=== PATIENT | male | born 1965 | race Caucasian/White ===

== ENCOUNTER → 2018-08-15 | Day surgery (SDC) | payer OTHER ==
--- NOTE | 2018-08-14 16:25 | Diagnostic Imaging Report ---
ADDENDUM #1 EXAMINATION: CHEST 2 VIEWS INDICATION: Left fifth Metatarsal fracture. Preop for surgery. COMPARISON: None FINDINGS: TUBES and LINES: None. LUNGS: Lungs are well inflated. Lungs are clear. There is no evidence of pneumonia or pulmonary edema. PLEURA: No pleural effusion or pneumothorax. HEART AND MEDIASTINUM: The cardiomediastinal silhouette is unremarkable. BONES AND SOFT TISSUES: No acute osseous lesion. Soft tissues are unremarkable. UPPER ABDOMEN: No free air under the diaphragm. IMPRESSION: No acute thoracic abnormality. Signed by: Dr. Rene Key M.D. on 08/18/2018 1:11 PM ORIGINAL REPORT EXAMINATION: CHEST 2 VIEWS INDICATION: Preop. COMPARISON: None FINDINGS: TUBES and LINES: None. LUNGS: Lungs are well inflated. Lungs are clear. There is no evidence of pneumonia or pulmonary edema. PLEURA: No pleural effusion or pneumothorax. HEART AND MEDIASTINUM: The cardiomediastinal silhouette is unremarkable. BONES AND SOFT TISSUES: No acute osseous lesion. Soft tissues are unremarkable. UPPER ABDOMEN: No free air under the diaphragm. IMPRESSION: No acute thoracic abnormality. Signed by: Dr. Rene Key M.D. on 08/14/2018 4:21 PM
[~2018-08-15] MED LIST: AMBIEN10 MG PO; BUPIVACAINE HCL 0.5% INJ 30 ML VIAL INJ ONE; CEFAZOLIN SOD 1 GM VIAL ONE; COREG12.5 MG PO; CRESTOR10 MG PO; DEXAMETHASONE SOD PHOS INJ 4 MG/ML VIAL ONE; FENTANYL CITRATE/PF 100MCG/2 ML INJ ONE; HYDROCODONE/APAP 7.5MG-325MG 1 EA TAB ONE; HYDROMORPHONE 1MG/1ML INJ ONE; LIDOCAINE HCL 2% LOCAL INJ 5 ML SDV VIAL INJ ONE; MIDAZOLAM HCL 2 MG/2 ML VIAL ONE; ONDANSETRON HCL INJ 2 MG/ML VIAL ONE; PROPOFOL IV EMULSION 10 MG/ML 20 ML VIAL ONE; SEVOFLURANE INHAL SOLN 250 ML PEN BTL ONE; ULORIC40 MG PO
--- NOTE | 2018-08-15 07:53 | Operative Report ---
DATE OF PROCEDURE: August 15, 2018 PREOPERATIVE DIAGNOSIS: Left 5th metatarsal fracture. POSTOPERATIVE DIAGNOSIS: Left 5th metatarsal fracture. PLANNED PROCEDURE: Left 5th metatarsal open reduction internal fixation. MONITORING ENGINEER: None. ANESTHESIA: General with a postoperative block consisting of 10 mL of 0.5% Marcaine plain. HEMOSTASIS: Pneumatic thigh tourniquet set at 350 mmHg for a total time of approximately 30 minutes. MATERIALS: One [employer] hook plate, four 2.4-mm screws measuring between 12 and 14 mm, combination locking and nonlocking, 3-0 Vicryl, 4-0 Prolene. ESTIMATED BLOOD LOSS: Less than 10 mL. PATHOLOGY: None. DETAILS OF PROCEDURE: Patient was seen in the preoperative waiting room where the correct procedure and site was identified. The patient was brought to the operating room placed on the operating table in the supine position. General anesthesia was initiated at this time. A well-padded pneumatic tourniquet was placed about the patient's left thigh. The left foot, ankle and leg was then scrubbed, prepped and draped in the usual aseptic manner. The left foot, ankle and leg was exsanguinated with an Esmarch bandage and pneumatic thigh tourniquet was inflated to 350 mmHg for a total time approximately 30 minutes. Attention was directed to the lateral aspect of the patient's left 5th metatarsal base where a 6 cm linear incision was made. The incision was carried through the subcutaneous tissues them from deeper underlying structures. All vital neurovascular structures were identified and retracted dorsally and plantarly. All bleeders were cauterized or ligated as deemed necessary. At this point, the fracture of the 5th metatarsal base was easily identified. There was noted to be early hematoma formation. The fracture was reduced and stabilized, and temporarily fixated utilizing the hooks of the [employer] plate per teacher aide protocol. A BV tack was placed to confirm correct anatomic location. Next, per teacher aide protocol the remaining the screws were filled with a combination of locking and nonlocking to allow for the plate to adhere to the bone. Intraoperative fluoroscopy was utilized to ensure that the fracture site is stable. The wound was then flushed with copious amounts of sterile saline. Deep tissue was reapproximated with 3-0 Vicryl, subcutaneous tissue with 3-0 Vicryl and skin was closed using a running interlocking stitch with 4-0 Prolene. The incision site was then dressed with Adaptic, 4 x 4's, Kerlix, posterior splint. The patient is to remain 100% nonweightbearing to the left lower extremity, and to avoid any excessive ambulation until being seen in the office. The patient was given the office number and instructed to contract us if any problems should arise. After the dressing was applied, the patient was then transferred to the postoperative recovery unit with vital signs stable and vascular status intact. The patient was monitored there for a short period of time before being sent home with the following written and oral instructions: 1. Keep the dressing clean, dry and tact. 2. The patient is to remain 100% nonweightbearing to the left lower extremity and to avoid excessive ambulation until being seen in the office. 3. The patient was given the office number and instructed to contact us if any problems should arise. Job#: [id number] INO
[2018-08-15 08:40] VITALS: BP 160/90
== END | disposition home or self-care (01) ==
LOC: OR 05:05
PROVIDERS: ATTEND Podiatrist Foot & Ankle Surgery
DX: S92.352A Displaced fracture of fifth metatarsal bone, left foot, initial encounter for closed fracture (principal); X58.XXXA Exposure to other specified factors, initial encounter; I10 Essential (primary) hypertension; Z01.810 Encounter for preprocedural cardiovascular examination; Z01.818 Encounter for other preprocedural examination
CPT/HCPCS: 28485; 71046; 93005; C1713 ×2; J0690; J1100; J1170; J2001; J2250; J2405

== ENCOUNTER → 2019-02-20 | Day surgery (SDC) | payer OTHER ==
[~2019-02-20] MED LIST changes: +AMBIEN5 MG PO; +BACITRACIN 50,000 UNIT VIAL ONE; -CEFAZOLIN SOD 1 GM VIAL ONE; +CEFAZOLIN SOD 1 GM/NS 50ML 50 ML IV ONE; +HYDROCODONE/APAP 5MG-325MG TAB ONE; -HYDROCODONE/APAP 7.5MG-325MG 1 EA TAB ONE; -HYDROMORPHONE 1MG/1ML INJ ONE; +HYDROMORPHONE 2MG/ML 2 MG/ML ML ONE; +KETOROLAC TROMETHAMINE 30 MG/ML VIAL ONE; -ONDANSETRON HCL INJ 2 MG/ML VIAL ONE; +ONDANSETRON HCL INJ 2MG/ML 2ML 2 MG/ML VIAL ONE
[2019-02-20 08:40] VITALS: BP 138/86
--- NOTE | 2019-02-20 18:37 | Operative Report ---
DATE OF PROCEDURE: 02/20/2019 SURGEON: Jackie Napier DPM ([facility]) SE[employer]ONAL [employer] SURGEON: Emma Candelaria DPM PREOPERATIVE DIAGNOSIS: Painful hardware, left foot. POSTOPERATIVE DIAGNOSIS: Painful hardware, left foot. OPERATIVE PROCEDURE: Removal of painful hardware, left foot. DESCRIPTION OF PROCEDURE: The patient was placed on the OR table in the supine position. The left lower extremity was prepped and draped in the usual manner. A general anesthetic was administered, and hemostasis accomplished using a pneumatic cuff set at 250 mmHg at ankle level. An incision of approximately 5 cm long was made on the dorsolateral aspect of the base of the fifth metatarsal. The incision was deepened, exposing the plate and the screws. The screws were then removed with a screwdriver. The plate was then lifted off the bone. The wound was flushed with sterile saline solution. The periosteum and subcutaneous tissue were closed with 3-0 Vicryl and the skin with 4-0 nylon. Following the procedure, 9 mL of 0.5% Marcaine and 1 mL of Decadron were injected. A sterile compression dressing was then applied. At this time, the pneumatic cuff was released, and a reflex hyperemia was observed to all the digits. The patient tolerated the procedure and the anesthesia well and left the OR to recovery in good condition with vital signs stable. Jackie Napier DPM ([place]) SH/MODL /[id number] MTDD
== END | disposition home or self-care (01) ==
LOC: OR 05:00
PROVIDERS: ATTEND Podiatrist Foot & Ankle Surgery
DX: T84.84XA Pain due to internal orthopedic prosthetic devices, implants and grafts, initial encounter (principal); I10 Essential (primary) hypertension; Y83.8 Other surgical procedures as the cause of abnormal reaction of the patient, or of later complication, without mention of misadventure at the time of the procedure; Z01.810 Encounter for preprocedural cardiovascular examination
CPT/HCPCS: 20680; 93005; J0690; J1100; J1170; J1885; J2001; J2250; J2405; J2704

== ENCOUNTER → 2021-04-27 | Outpatient (CLI) | payer BC ==
[~2021-04-27] MED LIST changes: -BACITRACIN 50,000 UNIT VIAL ONE; -BUPIVACAINE HCL 0.5% INJ 30 ML VIAL INJ ONE; -CEFAZOLIN SOD 1 GM/NS 50ML 50 ML IV ONE; -DEXAMETHASONE SOD PHOS INJ 4 MG/ML VIAL ONE; -FENTANYL CITRATE/PF 100MCG/2 ML INJ ONE; -HYDROCODONE/APAP 5MG-325MG TAB ONE; -HYDROMORPHONE 2MG/ML 2 MG/ML ML ONE; -KETOROLAC TROMETHAMINE 30 MG/ML VIAL ONE; -LIDOCAINE HCL 2% LOCAL INJ 5 ML SDV VIAL INJ ONE; +LORAZEPAM INJ 2 MG/ML VIAL ONE; -MIDAZOLAM HCL 2 MG/2 ML VIAL ONE; -ONDANSETRON HCL INJ 2MG/ML 2ML 2 MG/ML VIAL ONE; -PROPOFOL IV EMULSION 10 MG/ML 20 ML VIAL ONE; -SEVOFLURANE INHAL SOLN 250 ML PEN BTL ONE
== END ==
LOC: MRI 11:54
PROVIDERS: ATTEND Internal Medicine
DX: Z86.73 Personal history of transient ischemic attack (TIA), and cerebral infarction without residual deficits (principal); M47.812 Spondylosis without myelopathy or radiculopathy, cervical region
CPT/HCPCS: 70551; 72050; J2060

== ENCOUNTER → 2021-06-05 | Outpatient (CLI) | payer BC ==
[~2021-06-05] MED LIST changes: -LORAZEPAM INJ 2 MG/ML VIAL ONE
== END ==
LOC: CT 11:04
PROVIDERS: ATTEND Psychiatry & Neurology Neurology
DX: G45.0 Vertebro-basilar artery syndrome (principal)

== ENCOUNTER → 2021-06-14 | Outpatient (CLI) | payer BC | LOC: MRI 12:55 | PROVIDERS: ATTEND Psychiatry & Neurology Neurology | DX: G45.0 Vertebro-basilar artery syndrome (principal) | CPT/HCPCS: 70544; 70547 ==

== ENCOUNTER 2021-12-19 17:17 | Emergency (ER) | payer BC ==
[~2021-12-19] VITALS: Ht 185.4 cm; Wt 86.2 kg
[2021-12-19] MEDS ORDERED: LIDOCAINE HCL 1% LOCAL INJ 20 ML VIAL INJ ONE (17:45)
[2021-12-19] MEDS ORDERED: CEPHALEXIN500 MG PO (17:55)
== END 2021-12-19 18:05 | disposition home or self-care (01) ==
LOC: ER 17:20
DX: S01.81XA Laceration without foreign body of other part of head, initial encounter (principal); W45.8XXA Other foreign body or object entering through skin, initial encounter; W22.09XA Striking against other stationary object, initial encounter; Y92.008 Other place in unspecified non-institutional (private) residence as the place of occurrence of the external cause
CPT/HCPCS: 99283

== ENCOUNTER → 2022-09-25 | Outpatient (CLI) | payer BC ==
[~2022-09-25] MED LIST changes: +CEPHALEXIN500 MG PO
== END ==
LOC: CT 15:30
PROVIDERS: ATTEND Internal Medicine
DX: G45.9 Transient cerebral ischemic attack, unspecified (principal)
CPT/HCPCS: 70450

== ENCOUNTER 2022-10-19 11:14 | Inpatient (IN) | payer BC ==
[2022-10-18 19:46] VITALS: BP 188/107
[~2022-10-19] VITALS: Ht 185.4 cm; Wt 86.2 kg
[2022-10-19] MEDS: METOCLOPRAMIDE HCL 10 MG/2ML VIAL IV SCH
[2022-10-19] MEDS ORDERED: ONDANSETRON HCL INJ 2MG/ML 2ML 2 MG/ML VIAL IV STA (12:14)
[2022-10-19 12:30] LABS: BASOPHILS % 0.4 % (0.0-1.0); HEMATOCRIT 53.4 % (38.2-49.6); HEMOGLOBIN 18.8 g/dL (14.0-18.0); LYMPHOCYTES # (AUTO) 1.2 (1.0-3.2); LYMPHOCYTES % 11.3 % (18.0-39.1); MEAN CORPUSCULAR HEMOGLOBIN 34.5 pg (28-32); MEAN CORPUSCULAR HGB CONC 35.2 g/dL (31-35); MONOCYTES # (AUTO) 0.9 (0.2-0.8); MONOCYTES % 8.6 % (4.4-11.3); NEUTROPHILS # (AUTO) 8.6 (2.1-6.9); NEUTROPHILS % 79.2 % (38.7-80.0); PLATELET COUNT 200 x10e3/uL (140-360); RED BLOOD COUNT 5.45 x10e6/uL (4.3-5.7); RED CELL DISTRIBUTION WIDTH 15.1 % (11.7-14.4)
[2022-10-19] MEDS ORDERED: LACTATED RINGER'S 1,000 ML IV ONE ×3 (12:30→15:00)
[2022-10-19 12:38] LABS: INR 1.05; PARTIAL THROMBOPLASTIN TIME 25.3 seconds (23.8-35.5); PROTHROMBIN TIME 14.7 seconds (11.9-14.5)
[2022-10-19 12:51] LABS: ALBUMIN 4.3 g/dL (3.5-5.0); ALBUMIN/GLOBULIN RATIO 1.1 (0.8-2.0); ANION GAP 27.4 mmol/L (8-16); CALCIUM 9.6 mg/dL (8.4-10.2); CREATININE, SERUM 2.25 mg/dL (0.72-1.25); POTASSIUM 3.4 mmol/L (3.5-5.1)
[2022-10-19 12:57] LABS: CREATINE KINASE MB 2.9 ng/mL (0-5.0)
[2022-10-19] MEDS ORDERED: LORAZEPAM INJ 2 MG/ML VIAL IV ONE (13:45)
[2022-10-19] MEDS ORDERED: IOPAMIDOL 370 MG/ML 100 ML INFUS..BTL INJ ONE (14:56)
[2022-10-19] MEDS ORDERED: DIPHENHYDRAMINE HCL INJ 50 MG/ML VIAL IV ONE (15:00)
[2022-10-19] MEDS ORDERED: PROMETHAZINE 12.5MG/ NACL 0.9% 12.5 MG/50 ML BAG IV ONE (15:00)
[2022-10-19] MEDS ORDERED: ORPHENADRINE CITRATE 30 MG/ML VIAL IV ONE (16:00)
[2022-10-19] MEDS ORDERED: KCL 20MEQ/.9 SOD CHL 1,000 ML IV ONE (16:30)
[2022-10-19 17:22] LABS: AMPHETAMINES SCREEN,URINE NEGATIVE (NEGATIVE); PHENCYCLIDINE SCREEN,URINE NEGATIVE (NEGATIVE)
[2022-10-19 17:23] LABS: BENZODIAZEPINES SCREEN,URINE POSITIVE (NEGATIVE); COLOR,URINE YELLOW (YELLOW)
[2022-10-19 17:24] LABS: CLARITY,URINE CLEAR (CLEAR)
[2022-10-19 17:25] LABS: KETONES,URINE TRACE (NEGATIVE); LEUKOCYTE ESTERASE ,URINE NEGATIVE (NEGATIVE); NITRITE,URINE NEGATIVE (NEGATIVE); PROTEIN,URINE DIPSTICK >=300 (NEGATIVE); URINE UROBILINOGEN 0.2 mg/dL (0.2 - 1)
[2022-10-19 17:33] LABS: BACTERIA,URINE RARE /HPF; EPITHELIAL CELLS,URINE RARE /LPF; RBC,URINE 0-5 /HPF (0-5); WBC,URINE (MAN) 0-5 /HPF (0-5)
[2022-10-19 20:00] VITALS: BP 147/81
[2022-10-19] MEDS ORDERED: CLOPIDOGREL75 MG PO (21:29)
[2022-10-19] MEDS ORDERED: TIZANIDINE HCL2 MG (21:47)
[2022-10-19] MEDS ORDERED: MELATONIN 5 MG TABLET PO PRN (23:00)
[2022-10-19] MEDS ORDERED: LIDOCAINE 4% PATCH TP PRN (23:00)
[2022-10-19] MEDS ORDERED: ONDANSETRON HCL INJ 2MG/ML 2ML 2 MG/ML VIAL IV PRN (23:00)
[2022-10-19] MEDS ORDERED: POTASSIUM CHLORIDE 20 MEQ TAB CR PO PRN (23:00)
[2022-10-19] MEDS ORDERED: HYDRALAZINE HCL 20 MG/ML VIAL IV PRN (23:00)
[2022-10-19] MEDS ORDERED: SIMETHICONE 80 MG CHEW PO PRN (23:00)
[2022-10-19] MEDS ORDERED: BENZONATATE 100 MG CAP PO PRN (23:00)
[2022-10-19] MEDS ORDERED: ACETAMINOPHEN 325 MG TAB PO PRN (23:00)
[2022-10-19] MEDS ORDERED: DOCUSATE SODIUM 100 MG CAP PO PRN (23:00)
[2022-10-19] MEDS ORDERED: DEXTROSE 50% SYRINGE 50 ML IV PRN (23:00)
[2022-10-19] MEDS ORDERED: ALBUTEROL/IPRATROPIUM 3 ML NEB NEB PRN (23:00)
[2022-10-19] MEDS ORDERED: DIPHENHYDRAMINE HCL 25 MG CAP PO PRN (23:00)
[2022-10-19] MEDS: CARVEDILOL 12.5 MG TAB PO SCH (23:15)
[2022-10-19] MEDS ORDERED: HYDROCODONE/APAP 5MG-325MG TAB PO PRN (23:15)
[2022-10-19] MEDS ORDERED: TIZANIDINE HCL 4 MG TAB PO PRN (23:15)
[2022-10-19] MEDS ORDERED: Morphine 4mg INJECTION 4 MG/ML INJ IV PRN (23:15)
[2022-10-19] MEDS: NIFEDIPINE CR 30 MG TAB PO SCH (23:15)
[2022-10-20] VITALS (8 sets, daily range): BP systolic 92–180; BP diastolic 65–108
[2022-10-20] MEDS: SODIUM CHLORIDE 0.9% 1000ML 1,000 ML IV SCH ×3 (01:03→16:27)
[2022-10-20] MEDS: METOCLOPRAMIDE HCL 10 MG/2ML VIAL IV SCH ×3 (06:21→22:26)
[2022-10-20 07:30] LABS: BASOPHILS % 0.6 % (0.0-1.0); EOSINOPHILS # (AUTO) 0.1 (0.0-0.4); EOSINOPHILS % 1.7 % (0.0-6.0); HEMATOCRIT 43.2 % (38.2-49.6); HEMOGLOBIN 14.1 g/dL (14.0-18.0); LYMPHOCYTES # (AUTO) 2.3 (1.0-3.2); LYMPHOCYTES % 34.2 % (18.0-39.1); MEAN CORPUSCULAR HEMOGLOBIN 34.2 pg (28-32); MEAN CORPUSCULAR HGB CONC 32.6 g/dL (31-35); MEAN CORPUSCULAR VOLUME 104.9 fL (81-99); MONOCYTES # (AUTO) 0.7 (0.2-0.8); MONOCYTES % 10.4 % (4.4-11.3); NEUTROPHILS # (AUTO) 3.5 (2.1-6.9); NEUTROPHILS % 52.8 % (38.7-80.0); PLATELET COUNT 137 x10e3/uL (140-360); RED BLOOD COUNT 4.12 x10e6/uL (4.3-5.7); RED CELL DISTRIBUTION WIDTH 16.3 % (11.7-14.4)
[2022-10-20 07:59] LABS: CALCIUM 8.1 mg/dL (8.4-10.2); CREATININE, SERUM 1.74 mg/dL (0.72-1.25); MAGNESIUM 1.6 MG/DL (1.3-2.1)
[2022-10-20] MEDS: CARVEDILOL 12.5 MG TAB PO SCH ×2 (09:51→16:25)
[2022-10-20] MEDS: NIFEDIPINE CR 30 MG TAB PO SCH (09:52)
[2022-10-20] MEDS: PANTOPRAZOLE SOD 40 MG TABEC PO SCH (09:52)
[2022-10-20] MEDS ORDERED: Morphine 2mg Syringe 2 MG/ML SYR ONE (10:12)
[2022-10-20] MEDS: Morphine 2mg Syringe 2 MG/ML SYR IV PRN ×2 (10:12→16:26)
[2022-10-20] MEDS ORDERED: ENOXAPARIN SOD INJ 40 MG/0.4 ML SYR SC SCH (17:00)
[2022-10-21] VITALS: BP 90/57
[2022-10-21] MEDS: SODIUM CHLORIDE 0.9% 1000ML 1,000 ML IV SCH (02:57)
[2022-10-21 04:00] VITALS: BP 116/75
[2022-10-21] MEDS: METOCLOPRAMIDE HCL 10 MG/2ML VIAL IV SCH (06:18)
[2022-10-21 06:32] LABS: BASOPHILS # (AUTO) 0.1 (0.0-0.1); BASOPHILS % 0.6 % (0.0-1.0); EOSINOPHILS # (AUTO) 0.3 (0.0-0.4); EOSINOPHILS % 3.4 % (0.0-6.0); HEMATOCRIT 44.1 % (38.2-49.6); HEMOGLOBIN 14.5 g/dL (14.0-18.0); LYMPHOCYTES # (AUTO) 2.8 (1.0-3.2); LYMPHOCYTES % 35.1 % (18.0-39.1); MEAN CORPUSCULAR HEMOGLOBIN 34.5 pg (28-32); MEAN CORPUSCULAR HGB CONC 32.9 g/dL (31-35); MONOCYTES # (AUTO) 0.8 (0.2-0.8); MONOCYTES % 9.5 % (4.4-11.3); NEUTROPHILS % 51.3 % (38.7-80.0); PLATELET COUNT 133 x10e3/uL (140-360); RED CELL DISTRIBUTION WIDTH 15.7 % (11.7-14.4)
[2022-10-21 06:57] LABS: ANION GAP 16.9 mmol/L (8-16); CALCIUM 8.4 mg/dL (8.4-10.2); CREATININE, SERUM 1.58 mg/dL (0.72-1.25); POTASSIUM 3.9 mmol/L (3.5-5.1)
[2022-10-21 08:00] VITALS: BP 161/97
[2022-10-21 08:29] VITALS: BP 161/97
[2022-10-21] MEDS: CARVEDILOL 12.5 MG TAB PO SCH (09:18)
[2022-10-21] MEDS: PANTOPRAZOLE SOD 40 MG TABEC PO SCH (09:19)
[2022-10-21] MEDS: NIFEDIPINE CR 30 MG TAB PO SCH (09:19)
[2022-10-21 11:14] VITALS: BP 171/101
[2022-10-21] MEDS: Morphine 2mg Syringe 2 MG/ML SYR IV PRN (11:47)
[2022-10-21 15:49] VITALS: BP 150/90
== END 2022-10-21 16:01 | disposition home or self-care (01) | DRG 694 ==
LOC: ER 12:16 → ERHOLD 15:54 → MED/SURG 20:01
PROVIDERS: ADMIT Internal Medicine; ATTEND Internal Medicine
DX: N13.2 Hydronephrosis with renal and ureteral calculous obstruction (principal); E23.0 Hypopituitarism; N17.9 Acute kidney failure, unspecified; K76.0 Fatty (change of) liver, not elsewhere classified; R31.29 Other microscopic hematuria; G89.29 Other chronic pain; E87.6 Hypokalemia; I10 Essential (primary) hypertension; K21.9 Gastro-esophageal reflux disease without esophagitis; G47.00 Insomnia, unspecified; Z79.890 Hormone replacement therapy; D75.1 Secondary polycythemia; Z20.822 Contact with and (suspected) exposure to COVID-19; Z86.73 Personal history of transient ischemic attack (TIA), and cerebral infarction without residual deficits
CPT/HCPCS: 0223U; 36415; 71045; 74018; 74177; 80048; 80053; 80307; 81001; 82550; 82553; 83690; 83735; 84484; 85025; 85610; 85730; 87086; 93005; 99284; J0692; J0696; J1200; J1650; J2060; J2270; J2360; J2405; J2550; J2765; J7030; J7121; Q9967

== ENCOUNTER 2023-04-18 17:30 | Observation (INO) | payer BC ==
[~2023-04-18] VITALS: Ht 368.3 cm; Wt 79.8 kg
[~2023-04-18 17:30] MED LIST changes: +CIPRO500 MG PO; +CLOPIDOGREL75 MG PO; +ELIQUIS5 MG PO; +NIFEDIPINE ER30 M1 PO; +TIZANIDINE HCL2 MG; +ULTRAM 50MG50 MG PO
[2023-04-18] MEDS ORDERED: SODIUM CHLORIDE 0.9% 1000ML 1,000 ML IV STA (17:48)
[2023-04-18] MEDS ORDERED: Morphine 4mg INJECTION 4 MG/ML INJ IV STA (17:48)
[2023-04-18] MEDS ORDERED: ONDANSETRON HCL INJ 2MG/ML 2ML 2 MG/ML VIAL IV STA ×2 (17:48)
[2023-04-18 17:57] LABS: BASOPHILS # (AUTO) 0.1 (0.0-0.1); BASOPHILS % 0.5 % (0.0-1.0); EOSINOPHILS # (AUTO) 0.1 (0.0-0.4); EOSINOPHILS % 0.5 % (0.0-6.0); HEMATOCRIT 45.2 % (38.2-49.6); HEMOGLOBIN 16.4 g/dL (14.0-18.0); LYMPHOCYTES # (AUTO) 1.7 (1.0-3.2); MEAN CORPUSCULAR HEMOGLOBIN 35.7 pg (28-32); MEAN CORPUSCULAR HGB CONC 36.3 g/dL (31-35); MEAN CORPUSCULAR VOLUME 98.3 fL (81-99); MONOCYTES # (AUTO) 0.6 (0.2-0.8); MONOCYTES % 6.6 % (4.4-11.3); NEUTROPHILS # (AUTO) 6.7 (2.1-6.9); NEUTROPHILS % 73.2 % (38.7-80.0); PLATELET COUNT 222 x10e3/uL (140-360); RED CELL DISTRIBUTION WIDTH 13.5 % (11.7-14.4)
[2023-04-18 18:09] LABS: INR 0.93; PARTIAL THROMBOPLASTIN TIME 31.3 seconds (23.8-35.5)
[2023-04-18 18:18] LABS: ALANINE AMINOTRANSFERASE 16 IU/L (0-55); ALBUMIN 4.4 g/dL (3.5-5.0); ALBUMIN/GLOBULIN RATIO 1.1 (0.8-2.0); ALKALINE PHOSPHATASE 79 IU/L (40-150); ANION GAP 23.2 mmol/L (8-16); BLOOD UREA NITROGEN 21 mg/dL (7-26); BUN/CREATININE RATIO 9 (6-25); CALCIUM 9.7 mg/dL (8.4-10.2); CARBON DIOXIDE 17 mmol/L (22-29); CHLORIDE 104 mmol/L (98-107); CREATINE KINASE 111 IU/L (30-200); CREATININE, SERUM 2.35 mg/dL (0.72-1.25); GLUCOSE 123 mg/dL (74-118); POTASSIUM 3.2 mmol/L (3.5-5.1); SODIUM 141 mmol/L (136-145)
[2023-04-18] MEDS ORDERED: IOPAMIDOL 370 MG/ML 100 ML INFUS..BTL INJ ONE (18:24)
[2023-04-18] MEDS ORDERED: PROMETHAZINE 25MG/ NS 50ML (IV) IV ONE ×2 (19:00→19:15)
[2023-04-18] MEDS ORDERED: ONDANSETRON HCL INJ 2MG/ML 2ML 2 MG/ML VIAL IV PRN (22:30)
[2023-04-18] MEDS ORDERED: Morphine 4mg INJECTION 4 MG/ML INJ IV PRN (22:30)
[2023-04-18] MEDS ORDERED: METOPROLOL TARTRATE INJ 1 MG/ML VIAL IV STA (22:31)
[2023-04-18] MEDS ORDERED: HALOPERIDOL LACTATE 5 MG/ML VIAL IV STA (22:35)
[2023-04-18] MEDS ORDERED: PROMETHAZINE 25MG/ NS 50ML (IV) IV STA (22:35)
[2023-04-18] MEDS ORDERED: HALOPERIDOL LACTATE 5 MG/ML VIAL ONE (22:46)
[2023-04-18] MEDS: CLONIDINE HCL 0.2 MG TAB PO STA (23:09)
[2023-04-18 23:15] LABS: CLARITY,URINE CLEAR (CLEAR); COLOR,URINE YELLOW (YELLOW); KETONES,URINE 1+ (NEGATIVE); LEUKOCYTE ESTERASE ,URINE NEGATIVE (NEGATIVE); NITRITE,URINE NEGATIVE (NEGATIVE); PROTEIN,URINE DIPSTICK 2+ (NEGATIVE); URINE UROBILINOGEN 0.2 mg/dL (0.2 - 1)
[2023-04-18 23:23] LABS: BACTERIA,URINE FEW /HPF; EPITHELIAL CELLS,URINE FEW /LPF; RBC,URINE 0-5 /HPF (0-5); WBC,URINE (MAN) 0-5 /HPF (0-5)
[2023-04-18] MEDS ORDERED: NITROGLYCERIN 2% OINT 1 GM PKT TOP STA (23:25)
[2023-04-18 23:35] VITALS: PULSE 79; RESP 18; O2SAT 100
[2023-04-19] MEDS ORDERED: LABETALOL HCL 5 MG/ML 20ML VIAL IV STA (00:07)
[2023-04-19] MEDS: CLONIDINE HCL 0.2 MG TAB PO STA (00:11)
[2023-04-19] MEDS ORDERED: DEXTROSE 50% SYRINGE 50 ML IV PRN (01:00)
[2023-04-19] MEDS ORDERED: ACETAMINOPHEN 325 MG TAB PO PRN (01:00)
[2023-04-19] MEDS ORDERED: ALBUTEROL/IPRATROPIUM 3 ML NEB NEB PRN (01:00)
[2023-04-19] MEDS ORDERED: MELATONIN 5 MG TABLET PO PRN (01:00)
[2023-04-19] MEDS ORDERED: SIMETHICONE 80 MG CHEW PO PRN (01:00)
[2023-04-19] MEDS ORDERED: LIDOCAINE 4% PATCH TP PRN (01:00)
[2023-04-19] MEDS ORDERED: DIPHENHYDRAMINE HCL 25 MG CAP PO PRN (01:00)
[2023-04-19] MEDS ORDERED: BENZONATATE 100 MG CAP PO PRN (01:00)
[2023-04-19] MEDS ORDERED: HYDRALAZINE HCL 20 MG/ML VIAL IV PRN (01:00)
[2023-04-19] MEDS ORDERED: POTASSIUM CHLORIDE 20 MEQ TAB CR PO PRN (01:00)
[2023-04-19] MEDS ORDERED: DOCUSATE SODIUM 100 MG CAP PO PRN (01:00)
[2023-04-19] MEDS ORDERED: IPRATROPIUM BROMIDE 0.02% 2.5 ML NEB NEB PRN (01:30)
[2023-04-19] MEDS ORDERED: ALBUTEROL SULF 0.083% NEB SOLN 3 ML NEB NEB PRN (01:30)
[2023-04-19] MEDS: SUCRALFATE 1 GM/10 ML SUSP NG SCH ×2 (02:39→07:30)
[2023-04-19] MEDS: NIFEDIPINE CR 30 MG TAB PO SCH ×2 (02:39→08:46)
[2023-04-19 02:45] LABS: BASOPHILS % 0.3 % (0.0-1.0); HEMATOCRIT 43.7 % (38.2-49.6); HEMOGLOBIN 15.8 g/dL (14.0-18.0); LYMPHOCYTES % 11.5 % (18.0-39.1); MEAN CORPUSCULAR HEMOGLOBIN 35.8 pg (28-32); MEAN CORPUSCULAR HGB CONC 36.2 g/dL (31-35); MEAN CORPUSCULAR VOLUME 99.1 fL (81-99); MONOCYTES # (AUTO) 0.6 (0.2-0.8); MONOCYTES % 6.2 % (4.4-11.3); NEUTROPHILS # (AUTO) 7.4 (2.1-6.9); NEUTROPHILS % 81.8 % (38.7-80.0); PLATELET COUNT 178 x10e3/uL (140-360); RED BLOOD COUNT 4.41 x10e6/uL (4.3-5.7); RED CELL DISTRIBUTION WIDTH 13.7 % (11.7-14.4)
[2023-04-19 03:28] LABS: ALBUMIN 4.1 g/dL (3.5-5.0); ALBUMIN/GLOBULIN RATIO 1.1 (0.8-2.0); ANION GAP 19.7 mmol/L (8-16); CALCIUM 9.1 mg/dL (8.4-10.2); CREATININE, SERUM 2.05 mg/dL (0.72-1.25); POTASSIUM 3.7 mmol/L (3.5-5.1)
[2023-04-19] MEDS ORDERED: LABETALOL HCL 20 ML ONE (04:40)
[2023-04-19] MEDS ORDERED: PANTOPRAZOLE SOD 40 MG TABEC PO SCH (07:30)
[2023-04-19 08:07] VITALS: BP 118/87; PULSE 67; RESP 18; TEMP 98.2; O2SAT 98
[2023-04-19] MEDS: SODIUM CHLORIDE 0.9% 1000ML 1,000 ML IV SCH (08:42)
[2023-04-19 09:48] VITALS: BP 95/70; PULSE 71; RESP 19; TEMP 97.9; O2SAT 100
[2023-04-19] MEDS ORDERED: ENOXAPARIN SOD INJ 40 MG/0.4 ML SYR SC SCH (17:00)
== END 2023-04-19 12:15 | disposition left against medical advice (07) ==
LOC: ER 17:43 → ERHOLD 22:22 → MED/SURG 04-19 08:00
PROVIDERS: ADMIT Internal Medicine; ATTEND Internal Medicine
DX: R10.9 Unspecified abdominal pain (principal); R11.2 Nausea with vomiting, unspecified; N17.9 Acute kidney failure, unspecified; E86.0 Dehydration; K20.90 Esophagitis, unspecified without bleeding; I16.0 Hypertensive urgency; Z86.711 Personal history of pulmonary embolism; Z88.8 Allergy status to other drugs, medicaments and biological substances; Z53.29 Procedure and treatment not carried out because of patient's decision for other reasons; Z79.02 Long term (current) use of antithrombotics/antiplatelets; Z79.899 Other long term (current) drug therapy; Z20.822 Contact with and (suspected) exposure to COVID-19
CPT/HCPCS: 0223U; 36415 ×2; 71260; 74177; 80053 ×2; 81001; 82550 ×2; 82553 ×2; 83880; 84484 ×2; 85025 ×2; 85610; 85730; 93005 ×2; 94799; 99285; G0378 ×2; J1630; J2405; J2550; J3490; J7030 ×2; Q9967

== ENCOUNTER 2023-04-23 03:02 | Emergency (ER) | payer BC ==
[~2023-04-23] VITALS: Ht 188 cm; Wt 82.6 kg
[2023-04-23 03:06] VITALS: O2SAT 98
[2023-04-23] MEDS ORDERED: ASPIRIN 81 MG CHEW TAB ONE (03:11)
[2023-04-23] MEDS ORDERED: ASPIRIN 81 MG CHEW TAB PO ONE (03:15)
[2023-04-23 03:19] LABS: BASOPHILS % 0.3 % (0.0-1.0); EOSINOPHILS % 0.3 % (0.0-6.0); HEMOGLOBIN 16.6 g/dL (14.0-18.0); LYMPHOCYTES # (AUTO) 1.4 (1.0-3.2); LYMPHOCYTES % 11.5 % (18.0-39.1); MEAN CORPUSCULAR HEMOGLOBIN 35.2 pg (28-32); MEAN CORPUSCULAR HGB CONC 36.1 g/dL (31-35); MEAN CORPUSCULAR VOLUME 97.5 fL (81-99); MONOCYTES # (AUTO) 0.8 (0.2-0.8); MONOCYTES % 6.4 % (4.4-11.3); NEUTROPHILS # (AUTO) 9.6 (2.1-6.9); NEUTROPHILS % 81.2 % (38.7-80.0); PLATELET COUNT 226 x10e3/uL (140-360); RED BLOOD COUNT 4.72 x10e6/uL (4.3-5.7)
[2023-04-23] MEDS ORDERED: ONDANSETRON HCL INJ 2MG/ML 2ML 2 MG/ML VIAL IV STA (03:25)
[2023-04-23 03:28] LABS: INR 0.94; PROTHROMBIN TIME 13.1 seconds (11.9-14.5)
[2023-04-23 03:29] LABS: PARTIAL THROMBOPLASTIN TIME 29.3 seconds (23.8-35.5)
[2023-04-23] MEDS ORDERED: HEPARIN 25,000 UNIT/D5W 250ML 1,000 UNIT in DEXTROSE 5% 250ML 250 ML IV SCH (03:30)
[2023-04-23] MEDS ORDERED: HEPARIN SOD (PORCINE) 5,000 UNIT/ML VIAL IV ONE (03:30)
[2023-04-23] MEDS ORDERED: METOPROLOL TARTRATE INJ 1 MG/ML VIAL IV ONE (03:30)
[2023-04-23] MEDS ORDERED: HEPARIN 25,000 UNIT DRIP IV ONE (03:33)
[2023-04-23 03:39] LABS: ALBUMIN 4.4 g/dL (3.5-5.0); ANION GAP 21.1 mmol/L (8-16); CALCIUM 10.1 mg/dL (8.4-10.2); CREATININE, SERUM 2.25 mg/dL (0.72-1.25); POTASSIUM 3.1 mmol/L (3.5-5.1)
== END 2023-04-23 03:50 | disposition other institution (70) ==
LOC: ER 03:07
DX: R07.89 Other chest pain (principal); I21.19 ST elevation (STEMI) myocardial infarction involving other coronary artery of inferior wall; I16.0 Hypertensive urgency; I10 Essential (primary) hypertension; R94.31 Abnormal electrocardiogram [ECG] [EKG]; Z86.711 Personal history of pulmonary embolism; Z87.442 Personal history of urinary calculi
CPT/HCPCS: 36415; 71045; 80053; 82550; 82553; 84484; 85025; 85610; 85730; 93005; 99284; J1644; J2405

== ENCOUNTER 2024-05-31 19:49 | Emergency (ER) | payer BC ==
[~2024-05-31] VITALS: Ht 188 cm; Wt 86.2 kg
[~2024-05-31 19:49] MED LIST changes: +PANTOPRAZOLE SO40 MG PO; +PEPCID20 MG PO; +PROMETHAZINE HC25 M1 PO
[2024-05-31] MEDS ORDERED: SODIUM CHLORIDE FLUSH 10 ML SYR IV PRN (20:00)
[2024-05-31 20:03] VITALS: TEMP 98.6
[2024-05-31] MEDS: SODIUM CHLORIDE 0.9% 1000ML 1,000 ML IV ONE (20:24)
[2024-05-31 20:39] LABS: BASOPHILS % 0.3 % (0.0-1.0); HEMATOCRIT 37.3 % (38.2-49.6); HEMOGLOBIN 11.9 g/dL (14.0-18.0); LYMPHOCYTES # (AUTO) 1.1 (1.0-3.2); LYMPHOCYTES % 8.2 % (18.0-39.1); MEAN CORPUSCULAR HEMOGLOBIN 31.4 pg (28-32); MEAN CORPUSCULAR HGB CONC 31.9 g/dL (31-35); MEAN CORPUSCULAR VOLUME 98.4 fL (81-99); MONOCYTES # (AUTO) 0.9 (0.2-0.8); MONOCYTES % 6.6 % (4.4-11.3); NEUTROPHILS # (AUTO) 11.2 (2.1-6.9); NEUTROPHILS % 84.4 % (38.7-80.0); PLATELET COUNT 235 x10e3/uL (140-360); RED BLOOD COUNT 3.79 x10e6/uL (4.3-5.7); RED CELL DISTRIBUTION WIDTH 20.1 % (11.7-14.4); WHITE BLOOD COUNT 13.24 x10e3/uL (4.8-10.8)
[2024-05-31 20:48] LABS: INR 1.03; PROTHROMBIN TIME 14.2 seconds (11.9-14.5)
[2024-05-31 20:59] LABS: ALBUMIN 3.8 g/dL (3.5-5.0); ALBUMIN/GLOBULIN RATIO 0.7 (0.8-2.0); ANION GAP 32.5 mmol/L (8-16); BILIRUBIN,TOTAL 0.9 mg/dL (0.2-1.2); CALCIUM 9.5 mg/dL (8.4-10.2); CREATININE, SERUM 3.61 mg/dL (0.72-1.25); POTASSIUM 4.5 mmol/L (3.5-5.1); TOTAL PROTEIN 8.9 g/dL (6.5-8.1)
[2024-05-31] MEDS: METOCLOPRAMIDE HCL 10 MG/2ML VIAL IV ONE (22:01)
[2024-05-31] MEDS ORDERED: METOCLOPRAMIDE HCL 10 MG/2ML VIAL ONE (22:03)
[2024-05-31 22:12] LABS: ETHANOL < 10.0 mg/dL (0.0-10.0); SALICYLATE < 5.0 mg/dL (0-30)
[2024-05-31] MEDS: HUM PROTHROMBIN CPLX(PCC)4FACT 500 UNIT VIAL IV STA (22:40)
[2024-05-31 23:03] VITALS: PULSE 126; RESP 27
[2024-05-31] MEDS: TIZANIDINE HCL 4 MG TAB PO STA (23:38)
[2024-06-01 00:45] VITALS: BP 105/89; PULSE 101; RESP 26; TEMP 98.3; O2SAT 99
== END 2024-06-01 01:09 | disposition other institution (70) ==
LOC: ER 19:56
DX: R06.02 Shortness of breath (principal); R11.2 Nausea with vomiting, unspecified; R00.2 Palpitations; R07.9 Chest pain, unspecified; K92.2 Gastrointestinal hemorrhage, unspecified; N17.9 Acute kidney failure, unspecified; S06.5X0A Traumatic subdural hemorrhage without loss of consciousness, initial encounter; W01.0XXA Fall on same level from slipping, tripping and stumbling without subsequent striking against object, initial encounter; Y93.01 Activity, walking, marching and hiking; Y92.89 Other specified places as the place of occurrence of the external cause; I10 Essential (primary) hypertension; E78.5 Hyperlipidemia, unspecified; I25.2 Old myocardial infarction; Z86.73 Personal history of transient ischemic attack (TIA), and cerebral infarction without residual deficits; Z86.711 Personal history of pulmonary embolism
CPT/HCPCS: 36415; 70450; 80053; 80320; 80329; 83690; 84484; 85025; 85610; 85730; 86850; 86900; 93005; 99285; C9113 ×2; J2765; J7030; J2470

== ENCOUNTER 2024-06-24 11:41 | Emergency (ER) | payer SELFPAY ==
[~2024-06-24] VITALS: Ht 188 cm; Wt 83.9 kg
[2024-06-24 11:50] VITALS: TEMP 98.4
[2024-06-24] MEDS ORDERED: SODIUM CHLORIDE FLUSH 10 ML SYR IV PRN (12:45)
[2024-06-24 12:46] LABS: BASOPHILS % 0.3 % (0.0-1.0); EOSINOPHILS # (AUTO) 0.1 (0.0-0.4); EOSINOPHILS % 0.7 % (0.0-6.0); HEMATOCRIT 26.2 % (38.2-49.6); HEMOGLOBIN 8.4 g/dL (14.0-18.0); LYMPHOCYTES # (AUTO) 0.8 (1.0-3.2); LYMPHOCYTES % 9.5 % (18.0-39.1); MEAN CORPUSCULAR HEMOGLOBIN 30.5 pg (28-32); MEAN CORPUSCULAR HGB CONC 32.1 g/dL (31-35); MEAN CORPUSCULAR VOLUME 95.3 fL (81-99); MONOCYTES # (AUTO) 0.4 (0.2-0.8); MONOCYTES % 4.5 % (4.4-11.3); NEUTROPHILS # (AUTO) 7.4 (2.1-6.9); NEUTROPHILS % 84.2 % (38.7-80.0); PLATELET COUNT 168 x10e3/uL (140-360); RED BLOOD COUNT 2.75 x10e6/uL (4.3-5.7); RED CELL DISTRIBUTION WIDTH 20.1 % (11.7-14.4)
[2024-06-24 13:00] LABS: ALBUMIN 3.3 g/dL (3.5-5.0); ALBUMIN/GLOBULIN RATIO 0.9 (0.8-2.0); ANION GAP 18.2 mmol/L (8-16); CALCIUM 8.6 mg/dL (8.4-10.2); CREATININE, SERUM 1.73 mg/dL (0.72-1.25); MAGNESIUM 2.2 MG/DL (1.3-2.1)
[2024-06-24 13:06] LABS: TROPONIN I 0.038 ng/mL (0-0.300)
[2024-06-24 13:11] LABS: POTASSIUM 3.2 mmol/L (3.5-5.1)
[2024-06-24] MEDS: ONDANSETRON HCL INJ 2MG/ML 2ML 2 MG/ML VIAL IV STA (13:35)
[2024-06-24] MEDS: Morphine 4mg INJECTION 4 MG/ML INJ IV ONE (13:35)
[2024-06-24 13:40] VITALS: PULSE 71; RESP 16
[2024-06-24 14:01] VITALS: PULSE 61; RESP 18; O2SAT 99
[2024-06-24] MEDS: HYDROCODONE/APAP 5MG-325MG TAB PO ONE (15:22)
[2024-06-24] MEDS: FUROSEMIDE INJ 10 MG/ML 4 ML VIAL IV ONE (15:23)
[2024-06-24 16:27] VITALS: BP 128/80; PULSE 67; RESP 16; O2SAT 100
== END 2024-06-24 15:52 | disposition home or self-care (01) ==
LOC: ER 11:47
DX: R06.02 Shortness of breath (principal); M54.50 Low back pain, unspecified; G89.29 Other chronic pain; E87.70 Fluid overload, unspecified; I10 Essential (primary) hypertension; E78.5 Hyperlipidemia, unspecified; I73.9 Peripheral vascular disease, unspecified; R94.31 Abnormal electrocardiogram [ECG] [EKG]; Z86.711 Personal history of pulmonary embolism
CPT/HCPCS: 36415; 71045; 80053; 83735; 83880; 84484; 85025; 93005; 94760; 94799; 99284; J1940; J2270; J2405

== ENCOUNTER 2024-07-11 14:09 | Inpatient (IN) | payer SELFPAY ==
[2024-07-11] VITALS (10 sets, daily range): BP systolic 92–111; BP diastolic 57–72; PULSE 34–51; RESP 12–21; TEMP 97.9–98.5; O2SAT 100
[~2024-07-11] VITALS: Ht 188 cm; Wt 81.6 kg
[~2024-07-11 14:09] MED LIST changes: -TIZANIDINE HCL2 MG; +TIZANIDINE HCL2 MG PO
[2024-07-11] MEDS ORDERED: SODIUM CHLORIDE FLUSH 10 ML SYR IV PRN (14:30)
[2024-07-11 14:51] LABS: BASOPHILS # (AUTO) 0.1 (0.0-0.1); BASOPHILS % 0.9 % (0.0-1.0); EOSINOPHILS # (AUTO) 0.1 (0.0-0.4); EOSINOPHILS % 1.5 % (0.0-6.0); HEMATOCRIT 29.1 % (38.2-49.6); HEMOGLOBIN 8.9 g/dL (14.0-18.0); LYMPHOCYTES % 15.4 % (18.0-39.1); MEAN CORPUSCULAR HEMOGLOBIN 28.5 pg (28-32); MEAN CORPUSCULAR HGB CONC 30.6 g/dL (31-35); MEAN CORPUSCULAR VOLUME 93.3 fL (81-99); MONOCYTES # (AUTO) 0.5 (0.2-0.8); MONOCYTES % 7.6 % (4.4-11.3); NEUTROPHILS % 74.3 % (38.7-80.0); PLATELET COUNT 188 x10e3/uL (140-360); RED BLOOD COUNT 3.12 x10e6/uL (4.3-5.7); RED CELL DISTRIBUTION WIDTH 19.4 % (11.7-14.4); WHITE BLOOD COUNT 6.67 x10e3/uL (4.8-10.8)
[2024-07-11] MEDS: SODIUM CHLORIDE 0.9% 1000ML 1,000 ML IV ONE ×2 (14:52→14:53)
[2024-07-11 14:59] LABS: INR 1.14; PROTHROMBIN TIME 15.2 seconds (11.9-14.5)
[2024-07-11 15:00] LABS: PARTIAL THROMBOPLASTIN TIME 31.5 seconds (23.8-35.5)
[2024-07-11 15:17] LABS: TROPONIN I < 0.05 ng/mL (0.0-0.40)
[2024-07-11 16:31] LABS: ALANINE AMINOTRANSFERASE 6 IU/L (0-55); ALBUMIN 3.1 g/dL (3.5-5.0); ALBUMIN/GLOBULIN RATIO 0.8 (0.8-2.0); ALKALINE PHOSPHATASE 142 IU/L (40-150); ANION GAP 24.9 mmol/L (8-16); BILIRUBIN,TOTAL 0.5 mg/dL (0.2-1.2); BLOOD UREA NITROGEN 11 mg/dL (7-26); BUN/CREATININE RATIO 6 (6-25); CALCIUM 8.5 mg/dL (8.4-10.2); CARBON DIOXIDE 13 mmol/L (22-29); CHLORIDE 104 mmol/L (98-107); CREATININE, SERUM 1.83 mg/dL (0.72-1.25); EST GLOMERULAR FILTRATION RATE 43 ML/MIN (>=60); GLUCOSE 120 mg/dL (74-118); POTASSIUM 3.9 mmol/L (3.5-5.1); SODIUM 138 mmol/L (136-145); TOTAL PROTEIN 6.8 g/dL (6.5-8.1)
[2024-07-11] MEDS: ASPIRIN 81 MG CHEW TAB PO ONE (16:35)
[2024-07-11] MEDS ORDERED: MUPIROCIN 2% OINT 22 GM TUBE TOP SCH (17:45)
[2024-07-11] MEDS: POTASSIUM CHLORIDE 20MEQ/100ML 100 ML IV SCH (17:46)
[2024-07-11] MEDS: SODIUM CHLORIDE 0.9% 1000ML 1,000 ML IV SCH (17:46)
[2024-07-11 18:03] LABS: ETHANOL 122.7 mg/dL (0.0-10.0)
[2024-07-11 18:27] LABS: SALICYLATE < 5.0 mg/dL (0-30)
[2024-07-11] MEDS: LACTATED RINGER'S 1,000 ML IV ONE (18:27)
[2024-07-11] MEDS ORDERED: ALLOPURINOL100 MG PO (19:37)
[2024-07-11] MEDS: MUPIROCIN 2% OINT 22 GM TUBE TOP SCH (21:00)
[2024-07-11] MEDS: ZOLPIDEM TARTRATE 5 MG TAB PO SCH (22:29)
[2024-07-12] VITALS (18 sets, daily range): BP systolic 98–181; BP diastolic 62–117; PULSE 48–136; RESP 12–24; TEMP 97.5–99.5; O2SAT 98–100
[2024-07-12 06:21] LABS: BASOPHILS # (AUTO) 0.1 (0.0-0.1); BASOPHILS % 0.8 % (0.0-1.0); EOSINOPHILS # (AUTO) 0.3 (0.0-0.4); EOSINOPHILS % 3.3 % (0.0-6.0); HEMATOCRIT 30.2 % (38.2-49.6); HEMOGLOBIN 9.2 g/dL (14.0-18.0); LYMPHOCYTES # (AUTO) 1.1 (1.0-3.2); LYMPHOCYTES % 13.6 % (18.0-39.1); MEAN CORPUSCULAR HEMOGLOBIN 28.8 pg (28-32); MEAN CORPUSCULAR HGB CONC 30.5 g/dL (31-35); MEAN CORPUSCULAR VOLUME 94.7 fL (81-99); MONOCYTES # (AUTO) 0.6 (0.2-0.8); MONOCYTES % 7.5 % (4.4-11.3); NEUTROPHILS # (AUTO) 5.8 (2.1-6.9); NEUTROPHILS % 74.5 % (38.7-80.0); PLATELET COUNT 142 x10e3/uL (140-360); RED BLOOD COUNT 3.19 x10e6/uL (4.3-5.7); RED CELL DISTRIBUTION WIDTH 19.4 % (11.7-14.4); WHITE BLOOD COUNT 7.78 x10e3/uL (4.8-10.8)
[2024-07-12 06:45] LABS: ALBUMIN 2.9 g/dL (3.5-5.0); ALBUMIN/GLOBULIN RATIO 0.8 (0.8-2.0); BILIRUBIN,TOTAL 0.7 mg/dL (0.2-1.2); CALCIUM 8.3 mg/dL (8.4-10.2); CREATININE, SERUM 1.39 mg/dL (0.72-1.25); TOTAL PROTEIN 6.4 g/dL (6.5-8.1)
[2024-07-12 08:01] LABS: FREE T4 (FREE THYROXINE) 1.02 ng/dL (0.8-1.8)
[2024-07-12 08:02] LABS: THYROID STIMULATING HORMONE 0.75 uIU/mL (0.350-4.940)
[2024-07-12] MEDS: HYDROCODONE/APAP 5MG-325MG TAB PO PRN (09:11)
[2024-07-12] MEDS ORDERED: ATROPINE SULFATE 1 MG/ML VIAL IV PRN (10:30)
[2024-07-12 11:17] LABS: CREATINE KINASE 55 IU/L (30-200)
[2024-07-12 11:52] LABS: TROPONIN I < 0.05 ng/mL (0.0-0.40)
[2024-07-12] MEDS ORDERED: DOCUSATE SODIUM 100 MG CAP PO PRN (14:00)
[2024-07-12] MEDS ORDERED: SIMETHICONE 80 MG CHEW PO PRN (14:00)
[2024-07-12] MEDS ORDERED: ALBUTEROL/IPRATROPIUM 3 ML NEB NEB PRN (14:00)
[2024-07-12] MEDS ORDERED: ACETAMINOPHEN 325 MG TAB PO PRN (14:00)
[2024-07-12] MEDS ORDERED: MELATONIN 3 MG TAB PO PRN (21:00)
[2024-07-12] MEDS: METOPROLOL TARTRATE 25 MG TAB PO ONE (22:45)
[2024-07-12] MEDS: ONDANSETRON HCL INJ 2MG/ML 2ML 2 MG/ML VIAL IV PRN (23:39)
[2024-07-13] VITALS (26 sets, daily range): BP systolic 110–180; BP diastolic 80–114; PULSE 73–127; RESP 15–26; TEMP 98–98.3; O2SAT 97–100
[2024-07-13] MEDS: NIFEDIPINE CR 30 MG TAB PO ONE (00:02)
[2024-07-13] MEDS: CHLORDIAZEPOXIDE HCL 25 MG CAP PO SCH (05:57)
[2024-07-13] MEDS: METOPROLOL TARTRATE INJ 1 MG/ML VIAL IV PRN (05:57)
[2024-07-13 06:33] LABS: BASOPHILS # (AUTO) 0.1 (0.0-0.1); BASOPHILS % 0.7 % (0.0-1.0); EOSINOPHILS # (AUTO) 0.1 (0.0-0.4); EOSINOPHILS % 1.3 % (0.0-6.0); HEMATOCRIT 30.7 % (38.2-49.6); HEMOGLOBIN 9.5 g/dL (14.0-18.0); LYMPHOCYTES # (AUTO) 1.2 (1.0-3.2); LYMPHOCYTES % 16.3 % (18.0-39.1); MEAN CORPUSCULAR HEMOGLOBIN 28.4 pg (28-32); MEAN CORPUSCULAR HGB CONC 30.9 g/dL (31-35); MEAN CORPUSCULAR VOLUME 91.6 fL (81-99); MONOCYTES # (AUTO) 0.8 (0.2-0.8); MONOCYTES % 10.6 % (4.4-11.3); NEUTROPHILS % 70.8 % (38.7-80.0); PLATELET COUNT 179 x10e3/uL (140-360); RED BLOOD COUNT 3.35 x10e6/uL (4.3-5.7); RED CELL DISTRIBUTION WIDTH 19.8 % (11.7-14.4); WHITE BLOOD COUNT 7.05 x10e3/uL (4.8-10.8)
[2024-07-13 06:53] LABS: ANION GAP 17.1 mmol/L (8-16); CALCIUM 8.8 mg/dL (8.4-10.2); CREATININE, SERUM 1.69 mg/dL (0.72-1.25); MAGNESIUM 1.5 MG/DL (1.3-2.1); PHOSPHORUS 3.2 MG/DL (2.3-4.7); POTASSIUM 4.1 mmol/L (3.5-5.1)
[2024-07-13] MEDS ORDERED: HYDRALAZINE HCL 25 MG TAB PO SCH (07:45)
[2024-07-13] MEDS: METOPROLOL TARTRATE 25 MG TAB PO SCH (08:57)
[2024-07-13] MEDS: FUROSEMIDE INJ 10 MG/ML 2 ML VIAL IV SCH (13:49)
[2024-07-13] MEDS: ISOSORBIDE DINITRATE 20 MG TAB PO SCH (13:50)
[2024-07-14] VITALS (21 sets, daily range): BP systolic 104–152; BP diastolic 75–101; PULSE 85–128; RESP 12–25; TEMP 98.4–98.6; O2SAT 94–100
[2024-07-14 06:27] LABS: BASOPHILS % 0.7 % (0.0-1.0); EOSINOPHILS # (AUTO) 0.4 (0.0-0.4); EOSINOPHILS % 5.8 % (0.0-6.0); HEMATOCRIT 29.9 % (38.2-49.6); HEMOGLOBIN 9.2 g/dL (14.0-18.0); LYMPHOCYTES # (AUTO) 1.5 (1.0-3.2); LYMPHOCYTES % 25.2 % (18.0-39.1); MEAN CORPUSCULAR HEMOGLOBIN 28.1 pg (28-32); MEAN CORPUSCULAR HGB CONC 30.8 g/dL (31-35); MEAN CORPUSCULAR VOLUME 91.4 fL (81-99); MONOCYTES # (AUTO) 0.5 (0.2-0.8); MONOCYTES % 8.8 % (4.4-11.3); NEUTROPHILS # (AUTO) 3.6 (2.1-6.9); NEUTROPHILS % 59.2 % (38.7-80.0); PLATELET COUNT 163 x10e3/uL (140-360); RED BLOOD COUNT 3.27 x10e6/uL (4.3-5.7); RED CELL DISTRIBUTION WIDTH 19.6 % (11.7-14.4); WHITE BLOOD COUNT 6.04 x10e3/uL (4.8-10.8)
[2024-07-14 06:45] LABS: ANION GAP 17.6 mmol/L (8-16); CALCIUM 8.9 mg/dL (8.4-10.2); CREATININE, SERUM 2.03 mg/dL (0.72-1.25); MAGNESIUM 1.4 MG/DL (1.3-2.1); PHOSPHORUS 3.2 MG/DL (2.3-4.7); POTASSIUM 3.6 mmol/L (3.5-5.1)
[2024-07-14] MEDS ORDERED: NIFEDIPINE CR 30 MG TAB PO SCH (09:00)
[2024-07-14] MEDS: POTASSIUM CHLORIDE 20 MEQ TAB CR PO ONE (09:40)
[2024-07-14] MEDS ORDERED: THIAMINE H100 MG/1 M IV (12:07)
[2024-07-14] MEDS ORDERED: FOLIC ACID0.4 MG PO (12:07)
[2024-07-14] MEDS ORDERED: ROSUVASTATIN CA40 MG PO (12:07)
[2024-07-14] MEDS ORDERED: AMBIEN CR12.5 MG PO (12:07)
[2024-07-14] MEDS ORDERED: LEVOTHYROXINE50 MCG PO (12:07)
[2024-07-14] MEDS ORDERED: METOPROLOL SUCC25 MG PO (12:07)
[2024-07-14] MEDS ORDERED: AMLODIPINE BESYL5 MG PO (12:07)
[2024-07-14] MEDS ORDERED: THIORIDAZINE HC50 MG PO (12:07)
[2024-07-14] MEDS ORDERED: CARAFATE1 GM/10 ML PO (12:07)
[2024-07-14] MEDS ORDERED: POTASSIUM CL ER PO (12:07)
[2024-07-14] MEDS ORDERED: CLONIDINE HCL0.1 MG PO (12:07)
[2024-07-14] MEDS ORDERED: FEROSUL325 MG PO (12:07)
[2024-07-14] MEDS ORDERED: NEURONTIN300 MG PO (12:07)
[2024-07-14] MEDS ORDERED: VITAMIN B-121000 MCG PO (12:07)
[2024-07-14] MEDS ORDERED: SENEXON-S 50-81 EACH PO (12:07)
[2024-07-14] MEDS: NIFEDIPINE CR 30 MG TAB PO SCH (20:39)
[2024-07-15] VITALS (12 sets, daily range): BP systolic 95–141; BP diastolic 69–84; PULSE 78–127; RESP 16–30; TEMP 98.3–98.4; O2SAT 97–100
[2024-07-15 06:37] LABS: BASOPHILS % 0.4 % (0.0-1.0); EOSINOPHILS # (AUTO) 0.4 (0.0-0.4); EOSINOPHILS % 3.8 % (0.0-6.0); HEMATOCRIT 28.8 % (38.2-49.6); HEMOGLOBIN 8.8 g/dL (14.0-18.0); LYMPHOCYTES # (AUTO) 1.5 (1.0-3.2); LYMPHOCYTES % 15.8 % (18.0-39.1); MEAN CORPUSCULAR HEMOGLOBIN 28.1 pg (28-32); MEAN CORPUSCULAR HGB CONC 30.6 g/dL (31-35); MONOCYTES # (AUTO) 0.4 (0.2-0.8); MONOCYTES % 3.9 % (4.4-11.3); NEUTROPHILS % 75.8 % (38.7-80.0); PLATELET COUNT 148 x10e3/uL (140-360); RED BLOOD COUNT 3.13 x10e6/uL (4.3-5.7); WHITE BLOOD COUNT 9.28 x10e3/uL (4.8-10.8)
[2024-07-15 06:57] LABS: ANION GAP 16.8 mmol/L (8-16); CALCIUM 8.7 mg/dL (8.4-10.2); CREATININE, SERUM 1.73 mg/dL (0.72-1.25); POTASSIUM 3.8 mmol/L (3.5-5.1)
[2024-07-15] MEDS: FUROSEMIDE INJ 10 MG/ML 2 ML VIAL IV SCH (08:24)
[2024-07-15] MEDS: ISOSORBIDE DINITRATE 20 MG TAB PO SCH (08:26)
[2024-07-15] MEDS: NIFEDIPINE CR 30 MG TAB PO SCH (08:27)
[2024-07-16] VITALS (11 sets, daily range): BP systolic 111–126; BP diastolic 73–90; PULSE 86–129; RESP 11–21; TEMP 97–98.5; O2SAT 95–99
[2024-07-16] MEDS: NIFEDIPINE CR 30 MG TAB PO SCH (08:16)
[2024-07-16 09:00] LABS: ANION GAP 16.7 mmol/L (8-16); CALCIUM 8.5 mg/dL (8.4-10.2); CREATININE, SERUM 1.66 mg/dL (0.72-1.25); POTASSIUM 3.7 mmol/L (3.5-5.1)
[2024-07-17] VITALS (14 sets, daily range): BP systolic 101–128; BP diastolic 72–84; PULSE 86–120; RESP 13–23; TEMP 97.7–98.3; O2SAT 94–99
[2024-07-17 11:52] LABS: BILIRUBIN,URINE NEGATIVE (NEGATIVE); CLARITY,URINE CLEAR (CLEAR); COLOR,URINE YELLOW (YELLOW); GLUCOSE, URINE NEGATIVE (NEGATIVE); KETONES,URINE NEGATIVE (NEGATIVE); LEUKOCYTE ESTERASE ,URINE NEGATIVE (NEGATIVE); NITRITE,URINE NEGATIVE (NEGATIVE); PH,URINE 7 (5 - 7); PROTEIN,URINE DIPSTICK NEGATIVE (NEGATIVE); URINE UROBILINOGEN 0.2 mg/dL (0.2 - 1)
[2024-07-17 11:58] LABS: HEMATOCRIT 31.8 % (38.2-49.6); HEMOGLOBIN 9.9 g/dL (14.0-18.0)
[2024-07-17 11:58] LABS: RBC,URINE 0-5 /HPF (0-5); WBC,URINE (MAN) 0-5 /HPF (0-5)
[2024-07-17 11:59] LABS: BACTERIA,URINE RARE /HPF; EPITHELIAL CELLS,URINE RARE /LPF
[2024-07-17 12:18] LABS: ANION GAP 16.7 mmol/L (8-16); CALCIUM 9.4 mg/dL (8.4-10.2); CREATININE, SERUM 1.6 mg/dL (0.72-1.25); POTASSIUM 3.7 mmol/L (3.5-5.1)
[2024-07-17] MEDS: FUROSEMIDE INJ 10 MG/ML 2 ML VIAL IV SCH (17:27)
[2024-07-17] MEDS: ZOLPIDEM TARTRATE 5 MG TAB PO PRN (23:51)
[2024-07-18] VITALS (12 sets, daily range): BP systolic 116–135; BP diastolic 81–97; PULSE 84–105; RESP 14–38; TEMP 97.7–98.4; O2SAT 93–98
[2024-07-18] MEDS ORDERED: CHLORDIAZEPOXID25 MG PO (05:12)
[2024-07-18] MEDS ORDERED: LASIX20 MG PO (05:12)
[2024-07-18] MEDS ORDERED: NIFEDIPINE ER30 M1 PO (05:12)
== END 2024-07-18 18:00 | disposition home or self-care (01) | DRG 309 ==
LOC: ER 14:14 → ERHOLD 17:27 → ICU 18:30 → OBSVTOIN 07-13 10:00
PROVIDERS: ADMIT Internal Medicine; ATTEND Internal Medicine
PROC: 4A143R3 Monitoring of Venous Saturation, Pulmonary, Percutaneous Approach (ICD-10-PCS; principal; 2024-07-11)
PROC: 4A143R3 Monitoring of Venous Saturation, Pulmonary, Percutaneous Approach (ICD-10-PCS; 2024-07-12)
DX: I49.5 Sick sinus syndrome (principal); E87.20 Acidosis, unspecified; N17.9 Acute kidney failure, unspecified; R00.1 Bradycardia, unspecified; E86.0 Dehydration; R01.1 Cardiac murmur, unspecified; I95.9 Hypotension, unspecified; F10.120 Alcohol abuse with intoxication, uncomplicated; Y90.6 Blood alcohol level of 120-199 mg/100 ml; E87.8 Other disorders of electrolyte and fluid balance, not elsewhere classified; I13.10 Hypertensive heart and chronic kidney disease without heart failure, with stage 1 through stage 4 chronic kidney disease, or unspecified chronic kidney disease; N18.30 Chronic kidney disease, stage 3 unspecified; I25.10 Atherosclerotic heart disease of native coronary artery without angina pectoris; F17.210 Nicotine dependence, cigarettes, uncomplicated; D64.9 Anemia, unspecified; R60.0 Localized edema; R00.0 Tachycardia, unspecified; R41.0 Disorientation, unspecified; E78.00 Pure hypercholesterolemia, unspecified; Z86.711 Personal history of pulmonary embolism; Z86.718 Personal history of other venous thrombosis and embolism; Z79.01 Long term (current) use of anticoagulants; Z95.828 Presence of other vascular implants and grafts; Z11.52 Encounter for screening for COVID-19; Z79.899 Other long term (current) drug therapy; Z88.8 Allergy status to other drugs, medicaments and biological substances
CPT/HCPCS: 36415; 70450; 71045; 76770; 78580; 80048; 80053; 80320; 80329; 81001; 82550; 83605; 83735; 84100; 84439; 84443; 84484; 85014; 85018; 85025; 85379; 85610; 85730; 87040; 87086; 93005; 93306; 93880; 94760; 94799; 99252; 99284; A9540; G0378; J0696; J1940; J2405; J3480; J7030; U0002

== ENCOUNTER 2024-08-09 15:08 | Inpatient (IN) | payer SELFPAY ==
[~2024-08-09] VITALS: Ht 188 cm; Wt 83.9 kg
[2024-08-09] VITALS (7 sets, daily range): BP systolic 162–199; BP diastolic 79–103; PULSE 35–39; RESP 13–20; TEMP 97.9–98.1; O2SAT 99–100
[~2024-08-09 15:08] MED LIST changes: +ALLOPURINOL100 MG PO; +AMBIEN CR12.5 MG PO; +AMLODIPINE BESYL5 MG PO; +CARAFATE1 GM/10 ML PO; +CHLORDIAZEPOXID25 MG PO; +CLONIDINE HCL0.1 MG PO; +FEROSUL325 MG PO; +FOLIC ACID0.4 MG PO; +LASIX20 MG PO; +LEVOTHYROXINE50 MCG PO; +METOPROLOL SUCC25 MG PO; +NEURONTIN300 MG PO; +POTASSIUM CL ER PO; +ROSUVASTATIN CA40 MG PO; +SENEXON-S 50-81 EACH PO; +THIAMINE H100 MG/1 M IV; +THIORIDAZINE HC50 MG PO; +VITAMIN B-121000 MCG PO
[2024-08-09 15:51] LABS: BASOPHILS % 0.6 % (0.0-1.0); EOSINOPHILS % 0.3 % (0.0-6.0); HEMATOCRIT 30.1 % (38.2-49.6); HEMOGLOBIN 8.9 g/dL (14.0-18.0); LYMPHOCYTES # (AUTO) 0.6 (1.0-3.2); LYMPHOCYTES % 7.9 % (18.0-39.1); MEAN CORPUSCULAR HEMOGLOBIN 25.9 pg (28-32); MEAN CORPUSCULAR HGB CONC 29.6 g/dL (31-35); MEAN CORPUSCULAR VOLUME 87.8 fL (81-99); MONOCYTES # (AUTO) 0.5 (0.2-0.8); MONOCYTES % 6.5 % (4.4-11.3); NEUTROPHILS # (AUTO) 6.1 (2.1-6.9); NEUTROPHILS % 84.4 % (38.7-80.0); PLATELET COUNT 246 x10e3/uL (140-360); RED BLOOD COUNT 3.43 x10e6/uL (4.3-5.7); RED CELL DISTRIBUTION WIDTH 19.1 % (11.7-14.4); WHITE BLOOD COUNT 7.24 x10e3/uL (4.8-10.8)
[2024-08-09 15:55] LABS: INR 1.07; PROTHROMBIN TIME 14.4 seconds (11.9-14.5)
[2024-08-09 16:02] LABS: ALBUMIN/GLOBULIN RATIO 1.1 (0.8-2.0); ALKALINE PHOSPHATASE 86 IU/L (40-150); ANION GAP 25.3 mmol/L (8-16); BILIRUBIN,TOTAL 0.5 mg/dL (0.2-1.2); BLOOD UREA NITROGEN 18 mg/dL (7-26); BUN/CREATININE RATIO 7 (6-25); CALCIUM 9.6 mg/dL (8.4-10.2); CARBON DIOXIDE 14 mmol/L (22-29); CHLORIDE 104 mmol/L (98-107); CREATININE, SERUM 2.57 mg/dL (0.72-1.25); EST GLOMERULAR FILTRATION RATE 28 ML/MIN (>=60); GLUCOSE 118 mg/dL (74-118); POTASSIUM 4.3 mmol/L (3.5-5.1); SODIUM 139 mmol/L (136-145); TOTAL PROTEIN 7.8 g/dL (6.5-8.1)
[2024-08-09 16:03] LABS: ALANINE AMINOTRANSFERASE < 6 IU/L (0-55)
[2024-08-09] MEDS ORDERED: DOCUSATE SODIUM 100 MG CAP PO PRN (17:00)
[2024-08-09] MEDS ORDERED: SIMETHICONE 80 MG CHEW PO PRN (17:00)
[2024-08-09] MEDS ORDERED: LIDOCAINE 4% PATCH TP PRN (17:00)
[2024-08-09] MEDS ORDERED: ALBUTEROL/IPRATROPIUM 3 ML NEB NEB PRN (17:00)
[2024-08-09] MEDS ORDERED: DEXTROSE 50% SYRINGE 50 ML IV PRN (17:00)
[2024-08-09] MEDS ORDERED: BENZONATATE 100 MG CAP PO PRN (17:00)
[2024-08-09] MEDS ORDERED: DIPHENHYDRAMINE HCL 25 MG CAP PO PRN (17:00)
[2024-08-09] MEDS ORDERED: HYDRALAZINE HCL 20 MG/ML VIAL IV PRN (17:00)
[2024-08-09] MEDS: SODIUM BICARBONATE 8.4% INJ 50 ML SYR IV ONE (17:14)
[2024-08-09] MEDS: LACTATED RINGER'S 1,000 ML INJ SCH (17:14)
[2024-08-09] MEDS: LOSARTAN POTASSIUM 100 MG TAB PO SCH (18:27)
[2024-08-09] MEDS ORDERED: TIZANIDINE HCL4 M1 PO (18:46)
[2024-08-09] MEDS ORDERED: AMLODIPINE BESY10 MG PO (18:46)
[2024-08-09] MEDS ORDERED: MELATONIN 5 MG TABLET PO PRN (21:00)
[2024-08-09 21:32] LABS: ANION GAP 19.3 mmol/L (8-16); CREATININE, SERUM 2.15 mg/dL (0.72-1.25); POTASSIUM 4.3 mmol/L (3.5-5.1)
[2024-08-09] MEDS ORDERED: ATROPINE SULFATE 1 MG/ML VIAL IV PRN (22:00)
[2024-08-09 22:44] LABS: AMPHETAMINES SCREEN,URINE NEGATIVE (NEGATIVE); BENZODIAZEPINES SCREEN,URINE POSITIVE (NEGATIVE); CANNABINOIDS SCREEN,URINE NEGATIVE (NEGATIVE); METHADONE SCREEN, URINE NEGATIVE (NEGATIVE); OPIATES SCREEN,URINE NEGATIVE (NEGATIVE); PHENCYCLIDINE SCREEN,URINE NEGATIVE (NEGATIVE)
[2024-08-10] VITALS (27 sets, daily range): BP systolic 142–196; BP diastolic 81–115; PULSE 35–142; RESP 12–22; TEMP 96.9–100.3; O2SAT 96–100
[2024-08-10 00:28] LABS: CHOL/HDL RATIO 3.4 (3.9-4.7); MAGNESIUM 1.9 MG/DL (1.3-2.1)
[2024-08-10 00:51] LABS: THYROID STIMULATING HORMONE 0.511 uIU/mL (0.350-4.940)
[2024-08-10 06:29] LABS: BASOPHILS % 0.9 % (0.0-1.0); EOSINOPHILS # (AUTO) 0.2 (0.0-0.4); EOSINOPHILS % 3.3 % (0.0-6.0); HEMATOCRIT 29.5 % (38.2-49.6); HEMOGLOBIN 8.8 g/dL (14.0-18.0); LYMPHOCYTES # (AUTO) 1.5 (1.0-3.2); LYMPHOCYTES % 34.1 % (18.0-39.1); MEAN CORPUSCULAR HGB CONC 29.8 g/dL (31-35); MEAN CORPUSCULAR VOLUME 87.3 fL (81-99); MONOCYTES # (AUTO) 0.5 (0.2-0.8); MONOCYTES % 10.7 % (4.4-11.3); NEUTROPHILS # (AUTO) 2.3 (2.1-6.9); NEUTROPHILS % 50.8 % (38.7-80.0); PLATELET COUNT 179 x10e3/uL (140-360); RED BLOOD COUNT 3.38 x10e6/uL (4.3-5.7); RED CELL DISTRIBUTION WIDTH 18.8 % (11.7-14.4); WHITE BLOOD COUNT 4.49 x10e3/uL (4.8-10.8)
[2024-08-10 06:58] LABS: ANION GAP 18.9 mmol/L (8-16); CREATININE, SERUM 1.83 mg/dL (0.72-1.25); POTASSIUM 3.9 mmol/L (3.5-5.1)
[2024-08-10] MEDS: PANTOPRAZOLE SOD 40 MG TABEC PO SCH (07:30)
[2024-08-10] MEDS: SODIUM BICARBONATE 650 MG TAB PO SCH (09:00)
[2024-08-10] MEDS: ONDANSETRON HCL INJ 2MG/ML 2ML 2 MG/ML VIAL IV PRN (15:03)
[2024-08-10] MEDS: PROMETHAZINE 25MG/ NS 50ML (IV) IV ONE (16:00)
[2024-08-10] MEDS: DOXYCYCLINE HYCLATE TABLET 100 MG TAB PO SCH (17:00)
[2024-08-10] MEDS: LORAZEPAM INJ 2 MG/ML VIAL IV ONE (18:01)
[2024-08-10] MEDS: METOCLOPRAMIDE HCL 10 MG/2ML VIAL IV SCH (18:34)
[2024-08-10] MEDS: LABETALOL HCL 5 MG/ML 20ML VIAL IV PRN (19:03)
[2024-08-10] MEDS: ATORVASTATIN 40 MG TAB PO SCH (21:00)
[2024-08-10] MEDS: PROMETHAZINE 25MG/ NS 50ML (IV) IV PRN (21:56)
[2024-08-11] VITALS (31 sets, daily range): BP systolic 158–210; BP diastolic 99–130; PULSE 78–140; RESP 15–40; TEMP 98.6–100.6; O2SAT 93–100
[2024-08-11 05:31] LABS: BASOPHILS % 0.2 % (0.0-1.0); HEMATOCRIT 35.7 % (38.2-49.6); HEMOGLOBIN 10.8 g/dL (14.0-18.0); LYMPHOCYTES # (AUTO) 0.4 (1.0-3.2); LYMPHOCYTES % 4.4 % (18.0-39.1); MEAN CORPUSCULAR HEMOGLOBIN 25.9 pg (28-32); MEAN CORPUSCULAR HGB CONC 30.3 g/dL (31-35); MEAN CORPUSCULAR VOLUME 85.6 fL (81-99); MONOCYTES # (AUTO) 0.5 (0.2-0.8); MONOCYTES % 5.1 % (4.4-11.3); NEUTROPHILS # (AUTO) 8.7 (2.1-6.9); NEUTROPHILS % 89.9 % (38.7-80.0); PLATELET COUNT 253 x10e3/uL (140-360); RED BLOOD COUNT 4.17 x10e6/uL (4.3-5.7); RED CELL DISTRIBUTION WIDTH 19.4 % (11.7-14.4); WHITE BLOOD COUNT 9.68 x10e3/uL (4.8-10.8)
[2024-08-11 05:57] LABS: ANION GAP 28.9 mmol/L (8-16); CALCIUM 9.7 mg/dL (8.4-10.2); CREATININE, SERUM 2.22 mg/dL (0.72-1.25); POTASSIUM 3.9 mmol/L (3.5-5.1)
[2024-08-11] MEDS: CLONIDINE HCL 0.1 MG/24 HR 1 EA PATCH TOP ONE (07:46)
[2024-08-11 14:15] LABS: BILIRUBIN,URINE SMALL (NEGATIVE); CLARITY,URINE CLEAR (CLEAR); COLOR,URINE YELLOW (YELLOW); GLUCOSE, URINE NEGATIVE (NEGATIVE); KETONES,URINE 2+ (NEGATIVE); LEUKOCYTE ESTERASE ,URINE NEGATIVE (NEGATIVE); NITRITE,URINE NEGATIVE (NEGATIVE); PH,URINE 6.5 (5 - 7); PROTEIN,URINE DIPSTICK 2+ (NEGATIVE); URINE UROBILINOGEN 0.2 mg/dL (0.2 - 1)
[2024-08-11 14:16] LABS: BACTERIA,URINE RARE /HPF; EPITHELIAL CELLS,URINE RARE /LPF; RBC,URINE 0-5 /HPF (0-5); WBC,URINE (MAN) 0-5 /HPF (0-5)
[2024-08-11 14:17] LABS: MUCUS,URINE FEW (RARE)
[2024-08-11] MEDS: LORAZEPAM 0.5 MG TAB PO PRN (16:28)
[2024-08-11] MEDS: MAGNESIUM SULFATE 2GM/50ML 50 ML IV ONE (16:59)
[2024-08-11] MEDS: NIFEDIPINE CR 30 MG TAB PO SCH (17:00)
[2024-08-11] MEDS: SODIUM BICARBONATE 8.4% INJ 50 ML SYR IV ONE (17:21)
[2024-08-11] MEDS: DEXAMETHASONE SOD PHOS INJ 4 MG/ML SDV IV ONE (17:21)
[2024-08-11] MEDS: SODIUM CHLORIDE 0.9% 1000ML 1,000 ML IV ONE (17:22)
[2024-08-11] MEDS: METOCLOPRAMIDE HCL 10 MG/2ML VIAL IV SCH (18:04)
[2024-08-11 19:37] LABS: ACETAMINOPHEN < 3.0 ug/mL (10-30); SALICYLATE < 5.0 mg/dL (0-30)
[2024-08-11] MEDS: SODIUM BICARBONATE 8.4% VIAL 150 ML in DEXTROSE 5% 1,000 ML IV SCH (19:51)
[2024-08-11 22:18] LABS: ANION GAP 23.9 mmol/L (8-16); CALCIUM 8.7 mg/dL (8.4-10.2); CREATININE, SERUM 1.88 mg/dL (0.72-1.25); POTASSIUM 3.9 mmol/L (3.5-5.1)
[2024-08-12] VITALS (31 sets, daily range): BP systolic 120–195; BP diastolic 84–164; PULSE 85–139; RESP 15–39; TEMP 97.4–100.1; O2SAT 86–99
[2024-08-12] MEDS: ACETAMINOPHEN 325 MG TAB PO PRN (01:34)
[2024-08-12 04:38] LABS: % IRON SATURATION 9 % (15-50); IRON 38 ug/dL (65-175); TOTAL IRON BINDING CAPACITY 416 ug/dL (261-478); TRANSFERRIN 297 mg/dL (174-364)
[2024-08-12 05:12] LABS: FOLATE 6.3 ng/mL (7.0-15.4)
[2024-08-12 14:24] LABS: ABG HCO3 31 mmol/L (22-26); ABG PCO2 37 mmHg (35-45); ABG PH 7.54 (7.35-7.45); ABG PO2 68 mmHg (80-105); ABG TCO2 33
[2024-08-12 15:39] LABS: BASOPHILS % 0.2 % (0.0-1.0); EOSINOPHILS % 0.1 % (0.0-6.0); HEMATOCRIT 34.8 % (38.2-49.6); HEMOGLOBIN 10.5 g/dL (14.0-18.0); LYMPHOCYTES # (AUTO) 1.1 (1.0-3.2); LYMPHOCYTES % 10.6 % (18.0-39.1); MEAN CORPUSCULAR HEMOGLOBIN 26.2 pg (28-32); MEAN CORPUSCULAR HGB CONC 30.2 g/dL (31-35); MEAN CORPUSCULAR VOLUME 86.8 fL (81-99); MONOCYTES % 9.8 % (4.4-11.3); NEUTROPHILS # (AUTO) 8.4 (2.1-6.9); NEUTROPHILS % 79.1 % (38.7-80.0); PLATELET COUNT 202 x10e3/uL (140-360); RED BLOOD COUNT 4.01 x10e6/uL (4.3-5.7); RED CELL DISTRIBUTION WIDTH 19.9 % (11.7-14.4); WHITE BLOOD COUNT 10.62 x10e3/uL (4.8-10.8)
[2024-08-12 15:56] LABS: ANION GAP 18.3 mmol/L (8-16); CALCIUM 9.1 mg/dL (8.4-10.2); CREATININE, SERUM 1.6 mg/dL (0.72-1.25)
[2024-08-12 16:08] LABS: POTASSIUM 3.3 mmol/L (3.5-5.1)
[2024-08-12] MEDS: POTASSIUM CHLORIDE 20 MEQ TAB CR PO PRN (16:51)
[2024-08-12] MEDS: DOXYCYCLINE HYCLATE TABLET 100 MG TAB PO SCH (16:51)
[2024-08-12] MEDS: POTASSIUM CHLORIDE 20 MEQ TAB CR PO ONE (17:51)
[2024-08-12] MEDS: LACTATED RINGER'S 1,000 ML INJ SCH (18:16)
[2024-08-13] VITALS (24 sets, daily range): BP systolic 114–169; BP diastolic 71–107; PULSE 85–112; RESP 18–25; TEMP 97.9–100.4; O2SAT 91–97
[2024-08-13] MEDS: TRAMADOL HCL 50 MG TAB PO PRN (00:09)
[2024-08-13 06:54] LABS: BASOPHILS % 0.5 % (0.0-1.0); EOSINOPHILS % 0.1 % (0.0-6.0); HEMATOCRIT 26.9 % (38.2-49.6); LYMPHOCYTES # (AUTO) 0.9 (1.0-3.2); LYMPHOCYTES % 10.6 % (18.0-39.1); MEAN CORPUSCULAR HEMOGLOBIN 26.1 pg (28-32); MEAN CORPUSCULAR HGB CONC 29.7 g/dL (31-35); MEAN CORPUSCULAR VOLUME 87.9 fL (81-99); MONOCYTES # (AUTO) 0.8 (0.2-0.8); MONOCYTES % 9.6 % (4.4-11.3); NEUTROPHILS # (AUTO) 6.8 (2.1-6.9); NEUTROPHILS % 78.7 % (38.7-80.0); PLATELET COUNT 156 x10e3/uL (140-360); RED BLOOD COUNT 3.06 x10e6/uL (4.3-5.7); WHITE BLOOD COUNT 8.64 x10e3/uL (4.8-10.8)
[2024-08-13 07:24] LABS: ANION GAP 15.6 mmol/L (8-16); CALCIUM 8.4 mg/dL (8.4-10.2); CREATININE, SERUM 1.29 mg/dL (0.72-1.25); POTASSIUM 3.6 mmol/L (3.5-5.1)
[2024-08-13 09:52] LABS: ANISOCYTOSIS MODERATE; HYPOCHROMASIA SLIGHT; OVALOCYTES FEW; PLATELET ESTIMATE ADEQUATE; PLATELET MORPHOLOGY COMMENT NORMAL; RBC MORPHOLOGY COMMENT ABNORMAL
[2024-08-13] MEDS: SODIUM CHLORIDE 0.9% 250ML 0 ML ONE (10:32)
[2024-08-13] MEDS: IOPAMIDOL 610MG/1ML 300 MG/ML VIAL IV ONE ×2 (10:32→10:33)
[2024-08-13] MEDS: GENTAMICIN SULFATE 40 MG/ML 2 ML VIAL ONE ×2 (10:33→10:42)
[2024-08-13] MEDS: Vancomycin IV 1 GM VIAL ONE ×2 (10:33→10:42)
[2024-08-13] MEDS: SODIUM CHLORIDE 0.9% 1000ML 2,000 ML ONE (10:33)
[2024-08-13] MEDS: LIDOCAINE HCL 2% LOCAL 20 ML VIAL ONE ×2 (10:33→10:42)
[2024-08-13] MEDS: SODIUM CHLORIDE 0.9% 500ML 500 ML ONE (10:33)
[2024-08-13] MEDS: SODIUM CHLORIDE 0.9% 250ML 250 ML ONE (10:34)
[2024-08-13] MEDS: MIDAZOLAM HCL 2 MG/2 ML VIAL ONE (10:34)
[2024-08-13] MEDS: FENTANYL CITRATE/PF 100MCG/2 ML INJ ONE (10:34)
[2024-08-13 10:36] LABS: CREATININE,URINE RANDOM 199.47 mg/dL (63-166); TOTAL PROTEIN, URINE 183.7 mg/dL (1-14)
[2024-08-13] MEDS: DIPHENHYDRAMINE HCL INJ 50 MG/ML VIAL ONE (10:40)
[2024-08-13] MEDS: DIPHENHYDRAMINE HCL 25 MG CAP ONE (10:40)
[2024-08-13] MEDS: SODIUM BICARBONATE 8.4% SYRING 50 ML ONE (10:40)
[2024-08-13] MEDS: SODIUM CHLORIDE 0.9% 1000ML 0 ML ONE (10:41)
[2024-08-13] MEDS: SODIUM CHLORIDE 0.9% 500ML 0 ML ONE (10:42)
[2024-08-13 20:46] LABS: OSMOLALITY,SERUM OSMOMETER 309 mOsmol/kg (275-295)
[2024-08-14] VITALS (22 sets, daily range): BP systolic 112–139; BP diastolic 73–87; PULSE 78–120; RESP 16–26; TEMP 97.8–98.2; O2SAT 89–96
[2024-08-14 06:48] LABS: ANION GAP 17.5 mmol/L (8-16); CALCIUM 8.7 mg/dL (8.4-10.2); CREATININE, SERUM 1.31 mg/dL (0.72-1.25); POTASSIUM 3.5 mmol/L (3.5-5.1)
[2024-08-14] MEDS ORDERED: TIZANIDINE HCL4 M1 PO ×2 (15:48→15:50)
[2024-08-14] MEDS ORDERED: METOPROLOL TART50 MG PO (15:59)
[2024-08-14] MEDS ORDERED: NIFEDIPINE ER30 M1 PO (15:59)
[2024-08-14] MEDS: METOPROLOL TARTRATE 25 MG TAB PO ONE (16:48)
== END 2024-08-14 16:54 | disposition home or self-care (01) | DRG 243 ==
LOC: ER 15:14 → ERHOLD 16:46 → ICU 17:51
PROVIDERS: ADMIT Internal Medicine; ATTEND Internal Medicine
PROC: 0JH606Z Insertion of Pacemaker, Dual Chamber into Chest Subcutaneous Tissue and Fascia, Open Approach (ICD-10-PCS; principal; 2024-08-12)
PROC: 02H63JZ Insertion of Pacemaker Lead into Right Atrium, Percutaneous Approach (ICD-10-PCS; 2024-08-12)
PROC: 02HK3JZ Insertion of Pacemaker Lead into Right Ventricle, Percutaneous Approach (ICD-10-PCS; 2024-08-12)
DX: I49.5 Sick sinus syndrome (principal); E87.20 Acidosis, unspecified; N17.9 Acute kidney failure, unspecified; I47.10 Supraventricular tachycardia, unspecified; F13.139 Sedative, hypnotic or anxiolytic abuse with withdrawal, unspecified; F10.139 Alcohol abuse with withdrawal, unspecified; E87.3 Alkalosis; R00.1 Bradycardia, unspecified; I10 Essential (primary) hypertension; E86.0 Dehydration; I25.10 Atherosclerotic heart disease of native coronary artery without angina pectoris; E78.5 Hyperlipidemia, unspecified; R11.2 Nausea with vomiting, unspecified; Z66 Do not resuscitate; M54.9 Dorsalgia, unspecified; Z79.890 Hormone replacement therapy; Z56.0 Unemployment, unspecified; Z86.711 Personal history of pulmonary embolism; Z86.718 Personal history of other venous thrombosis and embolism; Z95.828 Presence of other vascular implants and grafts; I25.2 Old myocardial infarction; Z86.73 Personal history of transient ischemic attack (TIA), and cerebral infarction without residual deficits; Z88.8 Allergy status to other drugs, medicaments and biological substances
CPT/HCPCS: 33208; 36415; 36600; 70450; 71045; 74176; 75820; 80048; 80053; 80061; 80307; 80320; 80329; 81001; 82570; 82607; 82693; 82746; 82805; 82948; 83036; 83540; 83605; 83690; 83735; 83930; 84100; 84156; 84443; 84466; 84484; 85025; 85045; 85610; 87040; 87086; 93005; 94799; 99152; 99153; 99252; 99284; C1769; C1785; C1898; J0461; J0692; J1100; J1200; J1580; J2001; J2060; J2250; J2405; J2470; J2550; J2765; J3475; J7030; J7040; J7050; J7070

== ENCOUNTER 2025-03-08 17:50 | Inpatient (IN) | payer BC, OTHER ==
[~2025-03-08] VITALS: Ht 188 cm; Wt 83.9 kg
[~2025-03-08 17:50] MED LIST changes: +AMLODIPINE BESY10 MG PO; +METOPROLOL TART50 MG PO; +TIZANIDINE HCL4 M1 PO
[2025-03-08 17:55] VITALS: PULSE 87; RESP 20; TEMP 99.1
[2025-03-08] MEDS: SODIUM CHLORIDE 0.9% 1000ML 1,000 ML IV STA (18:08)
[2025-03-08] MEDS: ONDANSETRON HCL INJ 2MG/ML 2ML 2 MG/ML VIAL IV STA (18:09)
[2025-03-08] MEDS: FAMOTIDINE 20 MG/2 ML VIAL IV STA (18:12)
[2025-03-08 18:22] LABS: BASOPHILS % 0.2 % (0.0-1.0); EOSINOPHILS % 0.1 % (0.0-6.0); HEMATOCRIT 35.1 % (38.2-49.6); HEMOGLOBIN 11.8 g/dL (14.0-18.0); LYMPHOCYTES # (AUTO) 1.3 (1.0-3.2); LYMPHOCYTES % 10.9 % (18.0-39.1); MEAN CORPUSCULAR HEMOGLOBIN 27.5 pg (28-32); MEAN CORPUSCULAR HGB CONC 33.6 g/dL (31-35); MEAN CORPUSCULAR VOLUME 81.8 fL (81-99); MONOCYTES # (AUTO) 0.9 (0.2-0.8); MONOCYTES % 7.3 % (4.4-11.3); NEUTROPHILS # (AUTO) 9.9 (2.1-6.9); NEUTROPHILS % 81.2 % (38.7-80.0); PLATELET COUNT 223 x10e3/uL (140-360); RED BLOOD COUNT 4.29 x10e6/uL (4.3-5.7); WHITE BLOOD COUNT 12.26 x10e3/uL (4.8-10.8)
[2025-03-08 18:36] LABS: ALBUMIN 3.8 g/dL (3.5-5.0); ALBUMIN/GLOBULIN RATIO 0.9 (0.8-2.0); ANION GAP 23.1 mmol/L (8-16); BILIRUBIN,TOTAL 1.2 mg/dL (0.2-1.2); CALCIUM 8.9 mg/dL (8.4-10.2); CREATININE, SERUM 2.96 mg/dL (0.72-1.25); TOTAL PROTEIN 7.9 g/dL (6.5-8.1)
[2025-03-08 18:37] LABS: POTASSIUM 3.1 mmol/L (3.5-5.1)
[2025-03-08 18:42] LABS: TROPONIN I 0.025 ng/mL (0-0.300)
[2025-03-08] MEDS: LIDOCAINE VISC 2% SOLN 15 ML UDC PO STA (18:46)
[2025-03-08] MEDS: MAGNESIUM/ALUMINUM/SIMETHICONE 30 ML UDC PO STA (18:46)
[2025-03-08] MEDS: BELLADONNA ALK/PHENOBARBITAL 5 ML UDC PO ONE (18:46)
[2025-03-08] MEDS: Morphine 2mg Syringe 2 MG/ML SYR IV PRN (19:10)
[2025-03-08] MEDS ORDERED: NORVASC5 MG PO (20:39)
[2025-03-08 20:56] VITALS: BP 123/94; PULSE 59; RESP 18; TEMP 98.1; O2SAT 100
[2025-03-08] MEDS: SODIUM CHLORIDE 0.9% 1000ML 1,000 ML IV SCH (21:05)
[2025-03-08] MEDS ORDERED: ZOLPIDEM TARTRATE 5 MG TAB PO PRN (21:30)
[2025-03-08 22:00] VITALS: BP 123/94; PULSE 59; RESP 18; TEMP 98.1; O2SAT 100
[2025-03-08] MEDS: TIZANIDINE HCL 4 MG TAB PO SCH (22:49)
[2025-03-08] MEDS: ZOLPIDEM TARTRATE 5 MG TAB PO PRN (22:50)
[2025-03-08] MEDS: POTASSIUM CHLORIDE 10MEQ/100ML 100 ML IV SCH (22:52)
[2025-03-09] VITALS (10 sets, daily range): BP systolic 98–213; BP diastolic 52–106; PULSE 61–72; RESP 17–21; TEMP 98–99.6; O2SAT 95–100
[2025-03-09 01:57] LABS: TROPONIN I 0.026 ng/mL (0-0.300)
[2025-03-09] MEDS: METOCLOPRAMIDE HCL 10 MG/2ML VIAL IV SCH (05:27)
[2025-03-09 06:05] LABS: BASOPHILS % 0.5 % (0.0-1.0); EOSINOPHILS % 0.2 % (0.0-6.0); HEMATOCRIT 31.2 % (38.2-49.6); HEMOGLOBIN 10.6 g/dL (14.0-18.0); LYMPHOCYTES # (AUTO) 2.2 (1.0-3.2); LYMPHOCYTES % 24.8 % (18.0-39.1); MEAN CORPUSCULAR HEMOGLOBIN 27.6 pg (28-32); MEAN CORPUSCULAR VOLUME 81.3 fL (81-99); MONOCYTES % 11.1 % (4.4-11.3); NEUTROPHILS # (AUTO) 5.5 (2.1-6.9); NEUTROPHILS % 62.9 % (38.7-80.0); PLATELET COUNT 181 x10e3/uL (140-360); RED BLOOD COUNT 3.84 x10e6/uL (4.3-5.7); RED CELL DISTRIBUTION WIDTH 21.8 % (11.7-14.4); WHITE BLOOD COUNT 8.75 x10e3/uL (4.8-10.8)
[2025-03-09 06:36] LABS: ALBUMIN 3.4 g/dL (3.5-5.0); ALBUMIN/GLOBULIN RATIO 0.9 (0.8-2.0); ANION GAP 19.1 mmol/L (8-16); BILIRUBIN,TOTAL 1.2 mg/dL (0.2-1.2); CREATININE, SERUM 2.47 mg/dL (0.72-1.25); TOTAL PROTEIN 7.2 g/dL (6.5-8.1)
[2025-03-09 06:41] LABS: POTASSIUM 3.1 mmol/L (3.5-5.1)
[2025-03-09 07:05] LABS: TROPONIN I 0.031 ng/mL (0-0.300)
[2025-03-09] MEDS: AMLODIPINE BESYLATE 10 MG TAB PO ONE (21:36)
[2025-03-10] VITALS (8 sets, daily range): BP systolic 145–187; BP diastolic 92–98; PULSE 61–81; RESP 17–20; TEMP 98.1–99; O2SAT 98–100
[2025-03-10] MEDS: LABETALOL HCL 5 MG/ML 20ML VIAL IV PRN (04:17)
[2025-03-10 05:40] LABS: BASOPHILS % 0.4 % (0.0-1.0); EOSINOPHILS # (AUTO) 0.1 (0.0-0.4); EOSINOPHILS % 0.6 % (0.0-6.0); HEMATOCRIT 35.8 % (38.2-49.6); HEMOGLOBIN 11.4 g/dL (14.0-18.0); LYMPHOCYTES # (AUTO) 1.2 (1.0-3.2); LYMPHOCYTES % 13.9 % (18.0-39.1); MEAN CORPUSCULAR HEMOGLOBIN 27.6 pg (28-32); MEAN CORPUSCULAR HGB CONC 31.8 g/dL (31-35); MEAN CORPUSCULAR VOLUME 86.7 fL (81-99); MONOCYTES # (AUTO) 0.8 (0.2-0.8); MONOCYTES % 10.2 % (4.4-11.3); NEUTROPHILS # (AUTO) 6.2 (2.1-6.9); NEUTROPHILS % 74.4 % (38.7-80.0); PLATELET COUNT 193 x10e3/uL (140-360); RED BLOOD COUNT 4.13 x10e6/uL (4.3-5.7); RED CELL DISTRIBUTION WIDTH 22.5 % (11.7-14.4); WHITE BLOOD COUNT 8.27 x10e3/uL (4.8-10.8)
[2025-03-10 06:08] LABS: ANION GAP 21.7 mmol/L (8-16); CALCIUM 8.7 mg/dL (8.4-10.2); CREATININE, SERUM 1.93 mg/dL (0.72-1.25); POTASSIUM 3.7 mmol/L (3.5-5.1)
[2025-03-10] MEDS: AMLODIPINE BESYLATE 10 MG TAB PO SCH (08:10)
[2025-03-11] VITALS: BP 158/84; PULSE 99; RESP 20; TEMP 97.4; O2SAT 98
[2025-03-11 03:36] LABS: AMPHETAMINES SCREEN,URINE NEGATIVE (NEGATIVE); BENZODIAZEPINES SCREEN,URINE NEGATIVE (NEGATIVE); CANNABINOIDS SCREEN,URINE NEGATIVE (NEGATIVE); COCAINE SCREEN,URINE NEGATIVE (NEGATIVE); METHADONE SCREEN, URINE NEGATIVE (NEGATIVE); OPIATES SCREEN,URINE POSITIVE (NEGATIVE); PHENCYCLIDINE SCREEN,URINE NEGATIVE (NEGATIVE)
[2025-03-11 03:37] LABS: BILIRUBIN,URINE NEGATIVE (NEGATIVE); CLARITY,URINE CLEAR (CLEAR); COLOR,URINE YELLOW (YELLOW); GLUCOSE, URINE NEGATIVE (NEGATIVE); KETONES,URINE NEGATIVE (NEGATIVE); LEUKOCYTE ESTERASE ,URINE NEGATIVE (NEGATIVE); NITRITE,URINE NEGATIVE (NEGATIVE); PH,URINE 6 (5 - 7); PROTEIN,URINE DIPSTICK 2+ (NEGATIVE); URINE UROBILINOGEN 0.2 mg/dL (0.2 - 1)
[2025-03-11 04:00] VITALS: BP 174/95; PULSE 87; RESP 20; TEMP 98; O2SAT 100
[2025-03-11 04:07] LABS: BACTERIA,URINE MODERATE /HPF; EPITHELIAL CELLS,URINE FEW /LPF; RBC,URINE 0-5 /HPF (0-5); WBC,URINE (MAN) 0-5 /HPF (0-5)
[2025-03-11] MEDS: ONDANSETRON HCL INJ 2MG/ML 2ML 2 MG/ML VIAL IV PRN (05:34)
[2025-03-11 08:00] VITALS: BP 116/79; PULSE 78; RESP 18; TEMP 97.9; O2SAT 99
[2025-03-11 11:27] VITALS: BP 154/82; PULSE 68; RESP 18; TEMP 97.4; O2SAT 99
[2025-03-11] MEDS ORDERED: METOCLOPRAMIDE10 MG PO (12:13)
[2025-03-11] MEDS ORDERED: CARAFATE1 GM/10 ML PO (12:13)
[2025-03-11 12:34] VITALS: BP 154/82; PULSE 68; RESP 18; TEMP 97.4; O2SAT 99
== END 2025-03-11 13:00 | disposition home or self-care (01) | DRG 381 ==
LOC: ER 17:55 → ERHOLD 18:42 → MED/SURG2 20:21
PROVIDERS: ADMIT Internal Medicine; ATTEND Internal Medicine
PROC: 0DB68ZX Excision of Stomach, Via Natural or Artificial Opening Endoscopic, Diagnostic (ICD-10-PCS; 2025-03-10)
PROC: 0DB78ZX Excision of Stomach, Pylorus, Via Natural or Artificial Opening Endoscopic, Diagnostic (ICD-10-PCS; 2025-03-10)
PROC: 0DB48ZX Excision of Esophagogastric Junction, Via Natural or Artificial Opening Endoscopic, Diagnostic (ICD-10-PCS; principal; 2025-03-10 17:00)
DX: K22.11 Ulcer of esophagus with bleeding (principal); N17.9 Acute kidney failure, unspecified; K21.01 Gastro-esophageal reflux disease with esophagitis, with bleeding; S09.90XA Unspecified injury of head, initial encounter; R13.12 Dysphagia, oropharyngeal phase; I12.9 Hypertensive chronic kidney disease with stage 1 through stage 4 chronic kidney disease, or unspecified chronic kidney disease; N18.30 Chronic kidney disease, stage 3 unspecified; R55 Syncope and collapse; R53.81 Other malaise; R25.2 Cramp and spasm; R11.2 Nausea with vomiting, unspecified; E78.5 Hyperlipidemia, unspecified; M54.9 Dorsalgia, unspecified; I25.2 Old myocardial infarction; Z98.61 Coronary angioplasty status; Z95.0 Presence of cardiac pacemaker; Z86.73 Personal history of transient ischemic attack (TIA), and cerebral infarction without residual deficits; Z86.711 Personal history of pulmonary embolism; Z88.8 Allergy status to other drugs, medicaments and biological substances; Z59.6 Low income; W18.39XA Other fall on same level, initial encounter; Y92.019 Unspecified place in single-family (private) house as the place of occurrence of the external cause; F17.290 Nicotine dependence, other tobacco product, uncomplicated
CPT/HCPCS: 36415; 43239; 70450; 80048; 80053; 80307; 80320; 81001; 82550; 83690; 84484; 85025; 88305; 88312; 88342; 93005; 99285; J2270; J2405; J2470; J2765; J3480; J7030

== ENCOUNTER 2025-05-03 20:58 | Emergency (ER) | payer OTHER ==
[~2025-05-03] VITALS: Ht 188 cm; Wt 88.5 kg
[~2025-05-03 20:58] MED LIST changes: +ESIDRIX25 MG PO; +METOCLOPRAMIDE10 MG PO; +NORVASC10 MG PO; +NORVASC5 MG PO
[2025-05-03 22:25] VITALS: TEMP 97.8
[2025-05-03 22:57] LABS: BASOPHILS % 0.5 % (0.0-1.0); EOSINOPHILS # (AUTO) 0.2 (0.0-0.4); EOSINOPHILS % 3.1 % (0.0-6.0); HEMATOCRIT 31.6 % (38.2-49.6); HEMOGLOBIN 10.5 g/dL (14.0-18.0); LYMPHOCYTES # (AUTO) 1.3 (1.0-3.2); LYMPHOCYTES % 20.5 % (18.0-39.1); MEAN CORPUSCULAR HEMOGLOBIN 28.4 pg (28-32); MEAN CORPUSCULAR HGB CONC 33.2 g/dL (31-35); MEAN CORPUSCULAR VOLUME 85.4 fL (81-99); MONOCYTES # (AUTO) 0.6 (0.2-0.8); MONOCYTES % 9.9 % (4.4-11.3); NEUTROPHILS % 65.5 % (38.7-80.0); PLATELET COUNT 187 x10e3/uL (140-360); RED CELL DISTRIBUTION WIDTH 20.5 % (11.7-14.4); WHITE BLOOD COUNT 6.15 x10e3/uL (4.8-10.8)
[2025-05-03 23:18] LABS: ETHANOL < 10.0 mg/dL (0.0-10.0)
[2025-05-03 23:21] LABS: ALBUMIN 3.7 g/dL (3.5-5.0); ANION GAP 16.4 mmol/L (8-16); BILIRUBIN,TOTAL 0.5 mg/dL (0.2-1.2); CALCIUM 8.8 mg/dL (8.4-10.2); CREATININE, SERUM 3.51 mg/dL (0.72-1.25); TOTAL PROTEIN 7.3 g/dL (6.5-8.1)
[2025-05-03 23:30] LABS: POTASSIUM 3.4 mmol/L (3.5-5.1)
[2025-05-03] MEDS: ONDANSETRON HCL INJ 2MG/ML 2ML 2 MG/ML VIAL IV STA (23:36)
[2025-05-03] MEDS: SODIUM CHLORIDE 0.9% 1000ML 1,000 ML IV ONE (23:37)
[2025-05-03 23:42] VITALS: PULSE 60; RESP 19
[2025-05-03 23:45] LABS: TROPONIN I 0.013 ng/mL (0-0.300)
[2025-05-04 02:50] LABS: ANION GAP 16.6 mmol/L (8-16); CALCIUM 8.4 mg/dL (8.4-10.2); CREATININE, SERUM 3.2 mg/dL (0.72-1.25); POTASSIUM 3.6 mmol/L (3.5-5.1)
[2025-05-04 03:25] VITALS: BP 99/74; PULSE 60; RESP 18; TEMP 97.8; O2SAT 98
== END 2025-05-04 03:20 | disposition home or self-care (01) ==
LOC: ER 22:14
DX: S00.83XA Contusion of other part of head, initial encounter (principal); W18.39XA Other fall on same level, initial encounter; Y92.89 Other specified places as the place of occurrence of the external cause; N28.9 Disorder of kidney and ureter, unspecified; R11.2 Nausea with vomiting, unspecified; I10 Essential (primary) hypertension; E78.5 Hyperlipidemia, unspecified; K21.9 Gastro-esophageal reflux disease without esophagitis; R94.31 Abnormal electrocardiogram [ECG] [EKG]
CPT/HCPCS: 36415; 70450; 71045; 72125; 80048; 80053; 80320; 84484; 85025; 93005; 99284; J2405; J2470; J7030

== ENCOUNTER 2025-05-11 00:11 | Observation (INO) | payer OTHER ==
[2025-05-11] VITALS (14 sets, daily range): BP systolic 131–172; BP diastolic 90–148; PULSE 60–107; RESP 17–20; TEMP 97.3–100.3; O2SAT 100
[~2025-05-11] VITALS: Ht 188 cm; Wt 88.5 kg
[2025-05-11 00:39] LABS: BASOPHILS # (AUTO) 0.1 (0.0-0.1); BASOPHILS % 0.4 % (0.0-1.0); EOSINOPHILS % 0.1 % (0.0-6.0); HEMATOCRIT 36.4 % (38.2-49.6); HEMOGLOBIN 12.3 g/dL (14.0-18.0); LYMPHOCYTES # (AUTO) 1.4 (1.0-3.2); LYMPHOCYTES % 9.3 % (18.0-39.1); MEAN CORPUSCULAR HEMOGLOBIN 28.5 pg (28-32); MEAN CORPUSCULAR HGB CONC 33.8 g/dL (31-35); MEAN CORPUSCULAR VOLUME 84.5 fL (81-99); MONOCYTES # (AUTO) 0.8 (0.2-0.8); NEUTROPHILS # (AUTO) 12.9 (2.1-6.9); NEUTROPHILS % 84.8 % (38.7-80.0); PLATELET COUNT 269 x10e3/uL (140-360); RED BLOOD COUNT 4.31 x10e6/uL (4.3-5.7); RED CELL DISTRIBUTION WIDTH 20.8 % (11.7-14.4); WHITE BLOOD COUNT 15.25 x10e3/uL (4.8-10.8)
[2025-05-11 00:59] LABS: CORONAVIRUS COVID-19 AG NEGATIVE (NEGATIVE); INFLUENZA A AG NEGATIVE (NEGATIVE); INFLUENZA B AG NEGATIVE (NEGATIVE)
[2025-05-11] MEDS: SODIUM CHLORIDE 0.9% 1000ML 1,000 ML IV ONE ×3 (00:59→01:34)
[2025-05-11] MEDS: ACETAMINOPHEN 1000 MG/100 ML IV STA (01:00)
[2025-05-11 01:32] LABS: ALBUMIN 4.1 g/dL (3.5-5.0); ALKALINE PHOSPHATASE 94 IU/L (40-150); BILIRUBIN,TOTAL 0.6 mg/dL (0.2-1.2); BLOOD UREA NITROGEN 17 mg/dL (7-26); BUN/CREATININE RATIO 7 (6-25); CALCIUM 9.7 mg/dL (8.4-10.2); CARBON DIOXIDE 17 mmol/L (22-29); CHLORIDE 107 mmol/L (98-107); EST GLOMERULAR FILTRATION RATE 31 ML/MIN (>=60); GLUCOSE 127 mg/dL (74-118); SODIUM 144 mmol/L (136-145); TOTAL PROTEIN 8.3 g/dL (6.5-8.1)
[2025-05-11 01:33] LABS: ALANINE AMINOTRANSFERASE < 6 IU/L (0-55)
[2025-05-11] MEDS: ONDANSETRON HCL INJ 2MG/ML 2ML 2 MG/ML VIAL IV PRN (05:17)
[2025-05-11] MEDS: SODIUM CHLORIDE 0.9% 1000ML 1,000 ML IV SCH ×2 (05:18→16:00)
[2025-05-11 09:48] LABS: TROPONIN I 0.11 ng/mL (0-0.300)
[2025-05-11] MEDS: TIZANIDINE HCL 4 MG TAB PO PRN (10:39)
[2025-05-11] MEDS ORDERED: DICYCLOMINE HCL 10 MG CAP PO PRN (16:15)
[2025-05-11] MEDS: AMLODIPINE BESYLATE 10 MG TAB PO SCH (16:18)
[2025-05-11] MEDS: HYDROCHLOROTHIAZIDE 25 MG TAB PO SCH (16:18)
[2025-05-11] MEDS: Morphine 2mg Syringe 2 MG/ML SYR IV PRN (16:49)
[2025-05-11 17:12] LABS: TROPONIN I 0.091 ng/mL (0-0.300)
[2025-05-11] MEDS: PROMETHAZINE 12.5MG/ NACL 0.9% 12.5 MG/50 ML BAG IV ONE (19:57)
[2025-05-11] MEDS: ACETAMINOPHEN/CODEINE 300MG - 30MG TAB PO PRN (23:39)
[2025-05-12 01:29] VITALS: PULSE 104; RESP 20; O2SAT 100
[2025-05-12] MEDS: METOCLOPRAMIDE HCL 10 MG/2ML VIAL IV STA (04:10)
[2025-05-12] MEDS: METOCLOPRAMIDE HCL 10 MG/2ML VIAL IV SCH (05:26)
[2025-05-12 06:43] LABS: BASOPHILS # (AUTO) 0.1 (0.0-0.1); BASOPHILS % 0.7 % (0.0-1.0); EOSINOPHILS # (AUTO) 0.1 (0.0-0.4); EOSINOPHILS % 1.6 % (0.0-6.0); HEMATOCRIT 34.9 % (38.2-49.6); HEMOGLOBIN 11.5 g/dL (14.0-18.0); LYMPHOCYTES % 22.4 % (18.0-39.1); MEAN CORPUSCULAR HEMOGLOBIN 28.7 pg (28-32); MONOCYTES # (AUTO) 0.8 (0.2-0.8); MONOCYTES % 9.1 % (4.4-11.3); NEUTROPHILS # (AUTO) 5.9 (2.1-6.9); NEUTROPHILS % 65.9 % (38.7-80.0); PLATELET COUNT 244 x10e3/uL (140-360); RED BLOOD COUNT 4.01 x10e6/uL (4.3-5.7); RED CELL DISTRIBUTION WIDTH 21.7 % (11.7-14.4); WHITE BLOOD COUNT 8.88 x10e3/uL (4.8-10.8)
[2025-05-12 06:55] VITALS: PULSE 118; RESP 20; O2SAT 98
[2025-05-12 07:23] LABS: ALKALINE PHOSPHATASE 85 IU/L (40-150); ANION GAP 20.3 mmol/L (8-16); BILIRUBIN,TOTAL 0.7 mg/dL (0.2-1.2); BLOOD UREA NITROGEN 19 mg/dL (7-26); BUN/CREATININE RATIO 6 (6-25); CALCIUM 9.3 mg/dL (8.4-10.2); CARBON DIOXIDE 14 mmol/L (22-29); CHLORIDE 113 mmol/L (98-107); CREATININE, SERUM 3.17 mg/dL (0.72-1.25); EST GLOMERULAR FILTRATION RATE 22 ML/MIN (>=60); GLUCOSE 138 mg/dL (74-118); SODIUM 144 mmol/L (136-145); TOTAL PROTEIN 7.9 g/dL (6.5-8.1)
[2025-05-12 07:25] LABS: ALANINE AMINOTRANSFERASE < 6 IU/L (0-55); POTASSIUM 3.3 mmol/L (3.5-5.1)
[2025-05-12 07:30] VITALS: BP 150/96; PULSE 100; RESP 18; TEMP 97.4; O2SAT 100
[2025-05-12 08:08] VITALS: BP 150/96; PULSE 100; RESP 18; TEMP 97.4; O2SAT 100
[2025-05-12 12:04] VITALS: BP 182/82; PULSE 82; RESP 18; TEMP 97.4; O2SAT 99
[2025-05-12 16:08] VITALS: BP 149/89; PULSE 78; RESP 18; TEMP 98; O2SAT 100
== END 2025-05-12 16:40 | disposition left against medical advice (07) ==
LOC: ER 00:24 → ERHOLD 04:16 → MED/SURG3 04:58
PROVIDERS: ADMIT Internal Medicine; ATTEND Internal Medicine
DX: R55 Syncope and collapse (principal); E86.0 Dehydration; R11.2 Nausea with vomiting, unspecified; K22.10 Ulcer of esophagus without bleeding; I12.9 Hypertensive chronic kidney disease with stage 1 through stage 4 chronic kidney disease, or unspecified chronic kidney disease; N18.9 Chronic kidney disease, unspecified; K21.00 Gastro-esophageal reflux disease with esophagitis, without bleeding; Z87.442 Personal history of urinary calculi; E78.5 Hyperlipidemia, unspecified; Z86.718 Personal history of other venous thrombosis and embolism; I25.2 Old myocardial infarction; I25.10 Atherosclerotic heart disease of native coronary artery without angina pectoris; Z95.810 Presence of automatic (implantable) cardiac defibrillator; I35.0 Nonrheumatic aortic (valve) stenosis
CPT/HCPCS: 36415 ×2; 70450; 71045; 72131; 74176; 80053 ×2; 82550; 83605; 83690; 84484; 85025 ×2; 87040; 87428; 93005; 93306; 94799 ×2; 99284; G0378 ×2; J0131; J2270 ×2; J2405; J2470 ×2; J2543 ×2; J2550; J2765; J7030

== ENCOUNTER 2025-05-17 21:05 | Inpatient (IN) | payer OTHER ==
[~2025-05-17] VITALS: Ht 188 cm; Wt 88.5 kg
[2025-05-17 21:09] VITALS: TEMP 98.9
[2025-05-17] MEDS: SODIUM CHLORIDE 0.9% 1000ML 1,000 ML IV STA ×2 (21:29→21:30)
[2025-05-17 21:31] LABS: BASOPHILS % 0.3 % (0.0-1.0); HEMATOCRIT 31.3 % (38.2-49.6); HEMOGLOBIN 10.4 g/dL (14.0-18.0); LYMPHOCYTES # (AUTO) 1.7 (1.0-3.2); LYMPHOCYTES % 16.1 % (18.0-39.1); MEAN CORPUSCULAR HEMOGLOBIN 28.6 pg (28-32); MEAN CORPUSCULAR HGB CONC 33.2 g/dL (31-35); MONOCYTES # (AUTO) 0.4 (0.2-0.8); MONOCYTES % 4.1 % (4.4-11.3); NEUTROPHILS # (AUTO) 8.5 (2.1-6.9); NEUTROPHILS % 79.3 % (38.7-80.0); PLATELET COUNT 309 x10e3/uL (140-360); RED BLOOD COUNT 3.64 x10e6/uL (4.3-5.7); WHITE BLOOD COUNT 10.73 x10e3/uL (4.8-10.8)
[2025-05-17] MEDS: ACETAMINOPHEN 325 MG TAB PO STA (21:40)
[2025-05-17 21:51] LABS: ALBUMIN 3.5 g/dL (3.5-5.0); BILIRUBIN,TOTAL 0.5 mg/dL (0.2-1.2); CALCIUM 9.1 mg/dL (8.4-10.2); CREATININE, SERUM 2.63 mg/dL (0.72-1.25)
[2025-05-17] MEDS ORDERED: ONDANSETRON HCL INJ 2MG/ML 2ML 2 MG/ML VIAL IV PRN (22:15)
[2025-05-17 22:38] LABS: TROPONIN I 0.167 ng/mL (0-0.300)
[2025-05-17] MEDS: PROMETHAZINE 25MG/ NS 50ML (IV) IV PRN (23:24)
[2025-05-18] VITALS (8 sets, daily range): BP systolic 96–127; BP diastolic 74–79; PULSE 85–109; RESP 16–20; TEMP 98.2–98.8; O2SAT 98–100
[2025-05-18] MEDS: SODIUM CHLORIDE 0.9% 1000ML 1,000 ML IV SCH (01:03)
[2025-05-18] MEDS: Morphine 4mg INJECTION 4 MG/ML INJ IV PRN (01:41)
[2025-05-18 05:44] LABS: BASOPHILS % 0.3 % (0.0-1.0); HEMATOCRIT 24.3 % (38.2-49.6); HEMOGLOBIN 8.1 g/dL (14.0-18.0); LYMPHOCYTES # (AUTO) 1.7 (1.0-3.2); LYMPHOCYTES % 15.9 % (18.0-39.1); MEAN CORPUSCULAR HEMOGLOBIN 28.8 pg (28-32); MEAN CORPUSCULAR HGB CONC 33.3 g/dL (31-35); MEAN CORPUSCULAR VOLUME 86.5 fL (81-99); MONOCYTES # (AUTO) 0.6 (0.2-0.8); MONOCYTES % 5.9 % (4.4-11.3); NEUTROPHILS # (AUTO) 8.1 (2.1-6.9); NEUTROPHILS % 77.6 % (38.7-80.0); PLATELET COUNT 203 x10e3/uL (140-360); RED BLOOD COUNT 2.81 x10e6/uL (4.3-5.7); RED CELL DISTRIBUTION WIDTH 20.8 % (11.7-14.4)
[2025-05-18 06:10] LABS: ALBUMIN 2.9 g/dL (3.5-5.0); ANION GAP 15.1 mmol/L (8-16); BILIRUBIN,TOTAL 0.4 mg/dL (0.2-1.2); CALCIUM 7.9 mg/dL (8.4-10.2); CREATININE, SERUM 2.24 mg/dL (0.72-1.25); TOTAL PROTEIN 5.8 g/dL (6.5-8.1)
[2025-05-18 06:11] LABS: POTASSIUM 3.1 mmol/L (3.5-5.1)
[2025-05-18 06:30] LABS: TROPONIN I 0.159 ng/mL (0-0.300)
[2025-05-18] MEDS ORDERED: ZOLPIDEM TARTRATE 10 MG TAB PO PRN (15:15)
[2025-05-18] MEDS: CARVEDILOL 12.5 MG TAB PO SCH (17:00)
[2025-05-18] MEDS: POTASSIUM CHLORIDE 10MEQ EA PO STA (22:47)
[2025-05-19] VITALS: BP 125/80; PULSE 88; RESP 18; TEMP 98.3; O2SAT 100
[2025-05-19] MEDS: METOCLOPRAMIDE HCL 10 MG/2ML VIAL IV SCH (00:02)
[2025-05-19 00:48] LABS: % IRON SATURATION 25 % (15-50); IRON 71 ug/dL (65-175); TOTAL IRON BINDING CAPACITY 280 ug/dL (261-478); TRANSFERRIN 200 mg/dL (174-364)
[2025-05-19] MEDS: POTASSIUM CHLORIDE 10MEQ EA PO ONE ×2 (02:15→18:41)
[2025-05-19 04:00] VITALS: BP 136/88; PULSE 90; RESP 18; TEMP 98.2; O2SAT 96
[2025-05-19 05:26] LABS: BASOPHILS # (AUTO) 0.1 (0.0-0.1); BASOPHILS % 0.7 % (0.0-1.0); EOSINOPHILS # (AUTO) 0.1 (0.0-0.4); EOSINOPHILS % 0.6 % (0.0-6.0); HEMATOCRIT 23.4 % (38.2-49.6); LYMPHOCYTES # (AUTO) 2.1 (1.0-3.2); LYMPHOCYTES % 24.9 % (18.0-39.1); MEAN CORPUSCULAR HEMOGLOBIN 28.9 pg (28-32); MEAN CORPUSCULAR HGB CONC 31.6 g/dL (31-35); MEAN CORPUSCULAR VOLUME 91.4 fL (81-99); MONOCYTES # (AUTO) 0.4 (0.2-0.8); MONOCYTES % 4.2 % (4.4-11.3); NEUTROPHILS # (AUTO) 5.8 (2.1-6.9); NEUTROPHILS % 68.9 % (38.7-80.0); PLATELET COUNT 191 x10e3/uL (140-360); RED BLOOD COUNT 2.56 x10e6/uL (4.3-5.7); RED CELL DISTRIBUTION WIDTH 21.5 % (11.7-14.4)
[2025-05-19 05:35] LABS: HEMOGLOBIN 7.4 g/dL (14.0-18.0)
[2025-05-19 05:48] LABS: ALBUMIN 3.2 g/dL (3.5-5.0); ANION GAP 20.7 mmol/L (8-16); BILIRUBIN,TOTAL 0.4 mg/dL (0.2-1.2); CALCIUM 8.4 mg/dL (8.4-10.2); CREATININE, SERUM 2.02 mg/dL (0.72-1.25); POTASSIUM 3.7 mmol/L (3.5-5.1); TOTAL PROTEIN 6.5 g/dL (6.5-8.1)
[2025-05-19 07:50] VITALS: BP 112/68; PULSE 88; RESP 18; TEMP 98.1; O2SAT 100
[2025-05-19] MEDS: AMLODIPINE BESYLATE 10 MG TAB PO SCH (08:56)
[2025-05-19 09:14] VITALS: BP 112/68; PULSE 88; RESP 18; TEMP 98.1; O2SAT 100
[2025-05-19 13:09] VITALS: BP 121/87; PULSE 82; RESP 18; TEMP 98; O2SAT 100
[2025-05-19] MEDS ORDERED: FENTANYL CITRATE/PF 100MCG/2 ML INJ ONE (14:41)
[2025-05-19] MEDS ORDERED: LIDOCAINE HCL 2% LOCAL INJ 5 ML SDV VIAL INJ ONE (14:41)
[2025-05-19] MEDS ORDERED: PROPOFOL IV EMULSION 10 MG/ML 20 ML VIAL ONE (14:41)
[2025-05-19] MEDS ORDERED: METOCLOPRAMIDE HCL 10 MG/2ML VIAL ONE (14:59)
[2025-05-19] MEDS ORDERED: PANTOPRAZOLE SO40 MG PO (16:23)
[2025-05-19 17:17] VITALS: BP 140/84; PULSE 97; RESP 20; TEMP 98.1; O2SAT 96
[2025-05-19 17:43] LABS: ANION GAP 15.2 mmol/L (8-16); CREATININE, SERUM 1.89 mg/dL (0.72-1.25)
[2025-05-19 17:48] LABS: POTASSIUM 3.2 mmol/L (3.5-5.1)
== END 2025-05-19 19:04 | disposition home or self-care (01) | DRG 380 ==
LOC: ER 21:09 → ERHOLD 22:22 → MED/SURG2 05-18 00:14 → MED/SURG 05-18 21:10
PROVIDERS: ADMIT Internal Medicine; ATTEND Internal Medicine
PROC: 0DJ08ZZ Inspection of Upper Intestinal Tract, Via Natural or Artificial Opening Endoscopic (ICD-10-PCS; principal; 2025-05-19 14:51)
DX: K22.11 Ulcer of esophagus with bleeding (principal); R57.1 Hypovolemic shock; N17.9 Acute kidney failure, unspecified; K44.9 Diaphragmatic hernia without obstruction or gangrene; K29.80 Duodenitis without bleeding; K29.70 Gastritis, unspecified, without bleeding; K21.01 Gastro-esophageal reflux disease with esophagitis, with bleeding; I12.9 Hypertensive chronic kidney disease with stage 1 through stage 4 chronic kidney disease, or unspecified chronic kidney disease; I25.10 Atherosclerotic heart disease of native coronary artery without angina pectoris; I25.5 Ischemic cardiomyopathy; N18.30 Chronic kidney disease, stage 3 unspecified; D50.0 Iron deficiency anemia secondary to blood loss (chronic); E87.6 Hypokalemia; I73.9 Peripheral vascular disease, unspecified; E78.5 Hyperlipidemia, unspecified; T47.1X6A Underdosing of other antacids and anti-gastric-secretion drugs, initial encounter; F10.90 Alcohol use, unspecified, uncomplicated; Z53.29 Procedure and treatment not carried out because of patient's decision for other reasons; Z86.73 Personal history of transient ischemic attack (TIA), and cerebral infarction without residual deficits; Z86.718 Personal history of other venous thrombosis and embolism; I25.2 Old myocardial infarction; Z87.442 Personal history of urinary calculi; Z95.0 Presence of cardiac pacemaker; Z88.8 Allergy status to other drugs, medicaments and biological substances; Z91.148 Patient's other noncompliance with medication regimen for other reason; Y92.009 Unspecified place in unspecified non-institutional (private) residence as the place of occurrence of the external cause
CPT/HCPCS: 36415; 43239; 71045; 80048; 80053; 82550; 82607; 82746; 83540; 83605; 83690; 83880; 84466; 84484; 85025; 85045; 87040; 93005; 99252; 99285; J2003; J2270; J2470; J2543; J2550; J2765; J7030